=== PATIENT | female | born 1980 | race Caucasian/White ===

== ENCOUNTER 2016-11-22 16:12 | Outpatient (CLI) | payer MEDICAID ==
--- NOTE | 2016-11-22 17:23 | Non Stress Test Report ---
Non Stress Test Datetime Report Generated by CPN: 11/22/2016 17:23 DEMOGRAPHIC EGA NST: 38.2 INDICATION Indication for Study: Ordered by Provider Indication for Study (NST) Other: AMA VITAL SIGNS Temperature - NST: 98.0 Pulse - NST: 76 RESP - NST: 16 NBPSYS NST: 116 NBPDIA NST: 71 MONITORING Monitor Explained: Monitor Explained; Test Explained; Patient Verbalized Understanding Time on Monitor: 11/22/2016 16:38 Time off Monitor: 11/22/2016 17:15 NST Duration: 37 NST INTERVENTIONS NST Interventions: PO Hydration; Reposition Patient Physician Notified NST: Dr. Manning BABY A: [id number] BABY A Movement : Present Contraction Frequency : irreg FHR Baseline : 120 Accelerations : 15X15 Decelerations : None Variability : Moderate 6-25bpm NST Review: Meets Criteria for Reactive NST NST Review and Verified By : Alina Domingo RNC NST Results: Reactive NST REPORT Report Trigger: Send Report
== END 2016-11-22 17:26 | disposition home or self-care (01) ==
LOC: LC 16:12
PROVIDERS: ATTEND Obstetrics & Gynecology
PROC: 4A1HXCZ Monitoring of Products of Conception, Cardiac Rate, External Approach (ICD-10-PCS; principal; 2016-11-22)
DX: O47.1 False labor at or after 37 completed weeks of gestation (principal); O09.523 Supervision of elderly multigravida, third trimester; Z3A.38 38 weeks gestation of pregnancy
CPT/HCPCS: 59025

== ENCOUNTER 2016-12-04 01:10 | Inpatient (IN) | payer MEDICAID ==
[2016-12-04 01:35] LABS: APPEARANCE,URINE CLEAR; BILIRUBIN,URINE NEGATIVE (NEGATIVE); GLUCOSE, URINE NEGATIVE (NEGATIVE); KETONES,URINE NEGATIVE (NEGATIVE); LEUKOCYTE ESTERASE,URINE NEGATIVE (NEGATIVE); NITRITE,URINE NEGATIVE (NEGATIVE); PROTEIN,URINE NEGATIVE (NEGATIVE); URINE SPECIFIC GRAVITY 1.001; UROBILINOGEN,URINE NEGATIVE mg/dL (<2.0)
[2016-12-04] MEDS: RINGERS SOLUTION,LACTATED 1,000 ML IV PRN ×2 (01:43→08:15)
[2016-12-04 01:50] LABS: URINE BARBITURATES SCREEN NEGATIVE; URINE METHADONE SCREEN NEGATIVE; URINE OPIATES LOW NEGATIVE; URINE PHENCYCLIDINE SCREEN NEGATIVE
[2016-12-04 01:51] LABS: ABSOLUTE EOSINOPHILS # (AUTO) 0.1 10^3/uL (0.0-0.6); ABSOLUTE LYMPHOCYTES (AUTO) 1.3 10^3/uL (0.5-4.7); ABSOLUTE MONOCYTES (AUTO) 0.6 10^3/uL (0.1-1.4); ABSOLUTE NEUT (AUTO) 4.6 10^3/uL (1.7-8.2); BASOPHILS % (AUTO) 0.5 % (0-2); EOSINOPHILS % (AUTO) 1.4 % (0-6); HEMATOCRIT 38.4 % (36.0-47.0); HGB HCT DIFFERENCE 0.6; LYMPHOCYTES % (AUTO) 19.9 % (13-45); MEAN CORPUSCULAR HEMOGLOBIN 32.9 pg (27.0-33.4); MEAN CORPUSCULAR HGB CONC 33.8 g/dL (32.0-36.0); MEAN CORPUSCULAR VOLUME 97 fl (80-97); MONOCYTES % (AUTO) 9.2 % (3-13); RED BLOOD COUNT 3.94 10^6/uL (3.72-5.28); RED CELL DISTRIBUTION WIDTH 13.6 % (11.5-14.0); WHITE BLOOD COUNT 6.7 10^3/uL (4.0-10.5)
[2016-12-04] MEDS ORDERED: LIDOCAINE 1% INJ-PF (10 MG/ML) 30 ML SDV ONE (01:53)
[2016-12-04] MEDS ORDERED: MISOPROSTOL 0.2 MG TABLET ONE (01:53)
[2016-12-04] MEDS ORDERED: OXYTOCIN/NORMAL SALINE 20 UNIT/1,000 ML RTUINJ ONE (01:53)
[2016-12-04] MEDS ORDERED: BUPIVACAINE HCL 0.25 % INJ/PF (2.5 MG/1 ML) 30 ML VIAL INFIL ONE (07:33)
[2016-12-04] MEDS ORDERED: EPHEDRINE SULFATE INJ 50 MG/1 ML AMPULE IV PRN (07:33)
[2016-12-04] MEDS ORDERED: BENZOIN/ALOE VERA/STORAX/TOLU TINCTURE 60 ML TP PRN (07:33)
[2016-12-04] MEDS ORDERED: FENTANYL/BUPIVACAINE/NS/PF 100 ML EPI PRN (07:33)
[2016-12-04] MEDS ORDERED: FENTANYL CITRATE INJ/PF 100 MCG/2 ML AMPUL IV PRN (07:34)
[2016-12-04] MEDS ORDERED: MISOPROSTOL 0.2 MG TABLET PR PRN (07:35)
[2016-12-04] MEDS ORDERED: FENTANYL CITRATE INJ/PF 100 MCG/2 ML AMPUL ONE (07:47)
[2016-12-04] MEDS ORDERED: PHENYLEPHRINE HCL INJ/PF 10 MG/1 ML SDV ONE (07:48)
[2016-12-04] MEDS ORDERED: FENTANYL/BUPIVACAINE/NS/PF 200 MCG/100 ML RTUINJ EPI ONE (07:48)
[2016-12-04] MEDS ORDERED: EPHEDRINE SULFATE INJ 50 MG/1 ML AMPULE ONE ×2 (07:48→07:51)
[2016-12-04] MEDS ORDERED: BUPIVACAINE HCL 0.25 % INJ/PF (2.5 MG/1 ML) 30 ML VIAL ONE (07:48)
--- NOTE | 2016-12-04 08:01 | L&D Flow Sheet ---
LD Flowsheet Datetime Report Generated by CPN: 12/04/2016 08:00 Datetime: 12/04/2016 07:39 NBP Sys/Sherry/Mean (mmHg): 112 (QS system process) : 60 (QS system process) : 80 (QS system process) Pulse: 66 (QS system process) Respirations: 16 (Sherry Terrance, RN) LaborFlag: Antepartum (QS system process) Datetime: 12/04/2016 07:30 Uterine Activity Monitor Mode: External; Palpation (Sherry Terrance, RN) Frequency (min): 2-4 (Sherry Terrance, RN) Quality: Mild (Sherry Terrance, RN) Duration (sec): 60-70 (Sherry Terrance, RN) Resting Tone (Palpate): Relaxed (Sherry Terrance, RN) Assessment A Monitor Mode: External US (Sherry Terrance, RN) FHR Baseline Rate : 145 (Sherry Terrance, RN) Variability: Moderate 6-25 bpm (Sherry Terrance, RN) Accelerations: 10X10 (Sherry Terrance, RN) Decelerations: None (Sherry Terrance, RN) Medications Pitocin (milliunit): Pitocin Remains (milliunits) @ 6 (Sherry Terrance, RN) Datetime: 12/04/2016 07:26 NBP Sys/Sherry/Mean (mmHg): 120 (QS system process) : 63 (QS system process) : 84 (QS system process) Pulse: 67 (QS system process) Respirations: 16 (Sherry Terrance, RN) LaborFlag: Antepartum (QS system process) Datetime: 12/04/2016 07:20 Medications Pitocin (milliunit): Pitocin Increased to (milliunits) @ 6 (Sherry Terrance, RN) Datetime: 12/04/2016 07:19 I/O Interventions: Up to BR (Sherry Terrance, RN) Datetime: 12/04/2016 07:15 Uterine Activity Monitor Mode: External; Palpation (Sherry Terrance, RN) Frequency (min): 3-4 (Sherry Carlos RN) Quality: Mild (Sherry Carlos RN) Duration (sec): 60-70 (Sherry Carlos RN) Resting Tone (Palpate): Relaxed (Sherry Carlos RN) Assessment A Monitor Mode: External US (Sherry Carlos RN) FHR Baseline Rate : 140 (Sherry Carlos RN) Variability: Moderate 6-25 bpm (Sherry Carlos RN) Accelerations: 15X15 (Sherry Carlos RN) Decelerations: None (Sherry Carlos RN) Pain Pain Scale: 3 (Sherry Carlos RN) Pain Presence: Intermittent (Sherry Carlos RN) Pain Type: Contraction (Sherry Carlos RN) Pain Location: Abdomen; Perineum (Sherry Carlos RN) Pain Goal: 2 (Sherry Carlos RN) Pain Relief Measures: Comfort Measures (Sherry Carlos RN) Pain Coping: Talking Through Contractions; Breathing Through Contractions; Requesting Pain Medication or Epidural (Sherry Carlos RN) Pain Assessment Comments: Epidural requested (Sherry Villafuerteie, RN) Medications Pitocin (milliunit): Pitocin Remains (milliunits) @ 4 (Sherry Carlos, RN) Patient Care IV/Blood Work: IV Bolus Started (Sherry Carlos, RN) Comfort Measures: Breathing/Relaxation (Sherry Carlos, RN) Patient Care Comments: LR IVF bolus started for Epidural (Sherry Carlos, RN) Procedure TIME OUT Procedure Type: Epidural (Sherry Carlos, RN) Procedure Verify: Correct Patient Identity; Correct Side and Site are Marked; Accurate Procedure Consent Form; Agreement on Procedure to be Done; Relevant Images and Results are Properly Labeled and Displayed; Addressed Need to Administer Antibiotics or Fluids for Irrigation; Safety Precautions Based on Patient History or Medication Use (Sherry Carlos RN) Anesthesia Anesthesia Plans: Epidural (Sherry Carlos RN) LaborFlag: Antepartum (QS system process) Datetime: 12/04/2016 07:10 NBP Sys/Sherry/Mean (mmHg): 128 (QS system process) : 73 (QS system process) : 93 (QS system process) Pulse: 67 (QS system process) Communication Additional Nursing Comments: reporrt to Camryn Villafuerteie RN and care relinquished (Chelsey Gardner RN) LaborFlag: Antepartum (QS system process) Datetime: 12/04/2016 07:00 Uterine Activity Monitor Mode: External; Palpation (Chelsey Gardner RN) Frequency (min): 4 (Chelsey Gardner RN) Quality: Mild/Moderate (Chelsey Gardner RN) Duration (sec): 60-80 (Chelsey Gardner RN) Pattern: Normal: <= 5 Contractions in 10 Minutes (Chelsey Gardner RN) Resting Tone (Palpate): Relaxed (Chelsey Gardner RN) Assessment A Monitor Mode: External US (Chelsey Chalman, RN) FHR Baseline Rate : 135 (Chelsey Chalman, RN) FHR Baseline Changes: No Baseline Change (Chelsey Chalman, RN) Variability: Moderate 6-25 bpm (Chelsey Chalman, RN) Accelerations: 15X15 (Chelsey Chalman, RN) Decelerations: None (Chelsey Chalman, RN) Datetime: 12/04/2016 06:55 NBP Sys/Sherry/Mean (mmHg): 119 (QS system process) : 70 (QS system process) : 88 (QS system process) Pulse: 82 (QS system process) LaborFlag: Antepartum (QS system process) Datetime: 12/04/2016 06:54 NBP Sys/Sherry/Mean (mmHg): 114 (QS system process) : 68 (QS system process) : 85 (QS system process) Pulse: 72 (QS system process) LaborFlag: Antepartum (QS system process) Datetime: 12/04/2016 06:50 Medications Pitocin (milliunit): Pitocin Increased to (milliunits) @ (Annotations: 4) (Chelsey Gardner, RN) Datetime: 12/04/2016 06:45 Uterine Activity Monitor Mode: External; Palpation (Chelsey Chalman, RN) Frequency (min): 2-6 (Chelsey Chalman, RN) Quality: Mild/Moderate (Chelsey Chalman, RN) Duration (sec): 60-90 (Chelsey Chalman, RN) Pattern: Normal: <= 5 Contractions in 10 Minutes (Chelsey Chalman, RN) Resting Tone (Palpate): Relaxed (Chelsey Chalman, RN) Assessment A Monitor Mode: External US (Chelsey Chalman, RN) FHR Baseline Rate : 135 (Chelsey Chalman, RN) FHR Baseline Changes: No Baseline Change (Chelsey Chalman, RN) Variability: Moderate 6-25 bpm (Chelsey Chalman, RN) Accelerations: 15X15 (Chelsey Chalman, RN) Decelerations: None (Chelsey Chalman, RN) Datetime: 12/04/2016 06:39 NBP Sys/Sherry/Mean (mmHg): 112 (QS system process) : 64 (QS system process) : 82 (QS system process) Pulse: 79 (QS system process) LaborFlag: Antepartum (QS system process) Datetime: 12/04/2016 06:30 Uterine Activity Monitor Mode: External; Palpation (Chelsey Gardner RN) Frequency (min): 2-5 (Chelsey Gardner RN) Quality: Mild/Moderate (Chelsey Gardner RN) Duration (sec): 50-90 (Chelsey Gardner RN) Pattern: Normal: <= 5 Contractions in 10 Minutes (Chelsey Chalman, RN) Resting Tone (Palpate): Relaxed (Chelsey Chalman, RN) Assessment A Monitor Mode: External US (Chelsey Chalman, RN) FHR Baseline Rate : 135 (Chelsey Chalman, RN) Variability: Minimal - Undetectable to <=5 bpm (Chelsey Chalman, RN) Accelerations: 15X15 (Chelsey Chalman, RN) Decelerations: None (Chelsey Chalman, RN) Datetime: 12/04/2016 06:24 NBP Sys/Sherry/Mean (mmHg): 116 (QS system process) : 65 (QS system process) : 84 (QS system process) Pulse: 74 (QS system process) Temperature (F): 98.2 (Chelsey Chalman, RN) Temperature (C): 36.8 (QS system process) Temperature Route: Oral (Chelsey Chalman, RN) LaborFlag: Antepartum (QS system process) Datetime: 12/04/2016 06:20 Medications Pitocin (milliunit): Pitocin Started (milliunits) @ (Annotations: 2) (Chelsey Chalman, RN) Datetime: 12/04/2016 06:15 Uterine Activity Monitor Mode: External; Palpation (Chelsey Chalman, RN) Frequency (min): x1 (Chelsey Chalman, RN) Quality: Mild/Moderate (Chelsey Chalman, RN) Duration (sec): 80 (Chelsey Chalman, RN) Pattern: Normal: <= 5 Contractions in 10 Minutes (Chelsey Chalman, RN) Resting Tone (Palpate): Relaxed (Chelsey Chalman, RN) Assessment A Monitor Mode: External US (Chelsey Chalman, RN) FHR Baseline Rate : 140 (Chelsey Chalman, RN) FHR Baseline Changes: No Baseline Change (Chelsey Chalman, RN) Variability: Moderate 6-25 bpm (Chelsey Chalman, RN) Accelerations: 10X10 (Chelsey Chalman, RN) Decelerations: None (Chelsey Chalman, RN) Datetime: 12/04/2016 06:02 Patient Care Comments: monitors reconnected. pitocin to be started per Dr. Yu's order (Chelsey Chalman, RN) Datetime: 12/04/2016 04:22 Uterine Activity Monitor Mode: External; Palpation (Chelsey Chalman, RN) Frequency (min): 2-5 (Chelsey Chalman, RN) Quality: Mild/Moderate (Chelsey Jj, RN) Duration (sec): 60-100 (Chelsey Jj, RN) Pattern: Normal: <= 5 Contractions in 10 Minutes (Chelsey Chalman, RN) Resting Tone (Palpate): Relaxed (Chelsey Jj, RN) Assessment A Monitor Mode: External US (Chelsey Chalman, RN) FHR Baseline Rate : 140 (Chelsey Chalman, RN) FHR Baseline Changes: No Baseline Change (Chelsey Chalman, RN) Variability: Moderate 6-25 bpm (Chelsey Chalman, RN) Accelerations: 15X15 (Chelsey Chalman, RN) Decelerations: None (Chelsey Chalman, RN) Datetime: 12/04/2016 04:02 Patient Care Comments: pt returned to room from ambulating for NST (Chelsey Chalman, RN) Datetime: 12/04/2016 03:21 Uterine Activity Monitor Mode: External; Palpation (Chelsey Chalman, RN) Frequency (min): 1-3 (Chelsey Chalman, RN) Quality: Moderate (Chelsey Chalman, RN) Duration (sec): 60-100 (Chelsey Chalman, RN) Pattern: Normal: <= 5 Contractions in 10 Minutes (Chelsey Chalman, RN) Resting Tone (Palpate): Relaxed (Chelsey Chalman, RN) Assessment A Monitor Mode: External US (Chelsey Chalman, RN) FHR Baseline Rate : 140 (Chelsey Chalman, RN) FHR Baseline Changes: No Baseline Change (Chelsey Chalman, RN) Variability: Moderate 6-25 bpm (Chelsey Chalman, RN) Accelerations: 15X15 (Chelsey Chalman, RN) Decelerations: None (Chelsey Chalman, RN) Patient Care Comments: monitors d/c and pt ambulating x45 min (Chelsey Chalman, RN) Datetime: 12/04/2016 03:02 Patient Care Comments: pt returned to room from ambulating for NST (Chelsey Gardner RN) Datetime: 12/04/2016 02:13 Uterine Activity Monitor Mode: External; Palpation (Chelsey Gardner RN) Frequency (min): 2-5.5 (Chelsey Gardner RN) Quality: Moderate (Chelsey Gardner RN) Duration (sec): 60-180 (Chelsey Gardner RN) Pattern: Normal: <= 5 Contractions in 10 Minutes (Chelsey Gardner RN) Resting Tone (Palpate): Relaxed (Chelsey Gardner RN) Assessment A Monitor Mode: External US (Chelsey Gardner RN) FHR Baseline Rate : 140 (Chelsey Gardner RN) FHR Baseline Changes: No Baseline Change (Chelsey Gardner RN) Variability: Moderate 6-25 bpm (Chelsey Gardner RN) Accelerations: 15X15 (Chelsey Gardner RN) Decelerations: None (Chelsey Gardner RN) Patient Care Comments: monitors d/c. panties and pads given to pt. pt to ambulate for 45 min then return to room for NST (Chelsey Gardner RN) Datetime: 12/04/2016 02:06 NBP Sys/Sherry/Mean (mmHg): 122 (QS system process) : 64 (QS system process) : 87 (QS system process) Pulse: 76 (QS system process) Communication Additional Nursing Comments: report called to Dr. Yu. Per provider pt can ambulate for 4 hours with NST q 1 hr until labor is adequate. If pt not in active labor after 4 hours pitocin to be started at 2 milliunits/hr and increase by 2 milliunits q 30 min until labor is adequate. pt may have epidural PRN (Chelsey Gardner RN) LaborFlag: Antepartum (QS system process) Datetime: 12/04/2016 02:00 Uterine Activity Monitor Mode: External; Palpation (Chelsey Gardner RN) Frequency (min): 2-5 (Chelsey Chalman, RN) Quality: Moderate (Chelsey Chalman, RN) Duration (sec): 50-180 (Chelsey Chalman, RN) Pattern: Normal: <= 5 Contractions in 10 Minutes (Chelsey Chalman, RN) Resting Tone (Palpate): Relaxed (Chelsey Chalman, RN) Assessment A Monitor Mode: External US (Chelsey Chalman, RN) FHR Baseline Rate : 140 (Chelsey Chalman, RN) FHR Baseline Changes: No Baseline Change (Chelsey Chalman, RN) Variability: Moderate 6-25 bpm (Chelsey Chalman, RN) Accelerations: 15X15 (Chelsey Chalman, RN) Decelerations: None (Chelsey Chalman, RN) Datetime: 12/04/2016 01:45 Procedures: Consents Signed (Tri Karri, RN) Datetime: 12/04/2016 01:44 Pain Pain Scale: 1 (Chelsey Gardner RN) Pain Presence: Intermittent (Chelsey Gardner RN) Pain Type: Contraction (Chelsey Gardner RN) Pain Location: Abdomen (Chelsey Gardner RN) Pain Relief Measures: TRANSPORTATION ASSISTANT Use (Chelsey Gardner RN) Pain Coping: Talking Through Contractions (Chelsey Gardner RN) Membrane Status: Ruptured (Chelsey Gardner RN) Membranes Ruptured Date/Time: 12/04/2016 00:30 (Cehlsey Gardner RN) Membranes Rupture Method: Spontaneous (Chelsey Gardner RN) Amniotic Fluid Color: Clear (Chelsey Gardner RN) Amniotic Fluid Amount: Small (Chelsey Gardner RN) Amniotic Fluid Odor: Normal (Chelsey Gardner RN) Vaginal Bleeding: None (Chelsey Gardner RN) Pool: Positive (Chelsey Gardner RN) Maternal Assessment Level of Consciousness: Fully Conscious (Chelsey Chalman, RN) DTR's/Clonus: DTRs 1+ (Chelsey Chalman, RN) Headache: Denies (Chelsey Chalman, RN) Breath Sounds, Left: Clear and Equal (Chelsey Chalman, RN) Breath Sounds, Right: Clear and Equal (Chelsey Chalman, RN) Nausea/Vomiting: Denies (Chelsey Chalman, RN) RUQ Epigastric Pain: Present (Chelsey Chalman, RN) LaborFlag: Antepartum (QS system process) Datetime: 12/04/2016 01:41 NBP Sys/Sherry/Mean (mmHg): 114 (QS system process) : 63 (QS system process) : 83 (QS system process) Pulse: 83 (QS system process) LaborFlag: Antepartum (QS system process) Datetime: 12/04/2016 01:40 Patient Care IV/Blood Work: IV Started; IV Bolus Started; Labs Drawn with IV Start (Tri Karri, RN) Datetime: 12/04/2016 01:31 Vaginal Exam Dilatation (cm): 2.0 (Chelsey Gardner RN) Effacement (%): 60 (Chelsey Gardner RN) Station: -3 (Chelsey Gardner RN) Exam by: Camryn Gardner RN (Chelsey Gardner RN) Vaginal Bleeding: None (Chelsey Gardner RN) Cervix, Consistency: Soft (Chelsey Gardner RN) Cervix, Position: Midposition (Chelsey Gardner RN) Membrane Comments: obvious gross rupture of membranes observed before SVE (Chelsey Gardner RN) Datetime: 12/04/2016 01:28 Patient Care Comments: pt ambulating from bathroom to bed. amniotic fluid leaking on floor as pt walking. (Chelsey Gardner RN) Datetime: 12/04/2016 01:00 Vital Signs Stage of : Antepartum (Chelsey Gardner RN)
--- NOTE | 2016-12-04 10:01 | L&D Flow Sheet ---
LD Flowsheet Datetime Report Generated by CPN: 12/04/2016 10:00 Datetime: 12/04/2016 09:48 Patient Position/Activity: Left Lateral (Sherry Carlos RN) Datetime: 12/04/2016 09:47 NBP Sys/Sherry/Mean (mmHg): 98 (QS system process) : 68 (QS system process) : 77 (QS system process) Pulse: 108 (QS system process) Respirations: 16 (Sherry Carlos RN) LaborFlag: Antepartum (QS system process) Datetime: 12/04/2016 09:45 Monitor Mode: External; Palpation (Sherry Carlos RN) Frequency (min): 2-3 (Sherry Carlos RN) Quality: Mild/Moderate (Sherry Carlos, RN) Duration (sec): 60-70 (Sherry Carlos, RN) Resting Tone (Palpate): Relaxed (Sherry Carlos, RN) Monitor Mode: External US (Sherry Carlos RN) FHR Baseline Rate : 140 (Sherry Carlos, RN) Variability: Moderate 6-25 bpm (Sherrykendra Carlos, RN) Accelerations: 15X15 (Sherrykendra Carlos, RN) Decelerations: None (Sherry Carlos, RN) Pitocin (milliunit): Pitocin Remains (milliunits) @ 12 (Sherry Carlos, RN) Datetime: 12/04/2016 09:31 NBP Sys/Sherry/Mean (mmHg): 109 (QS system process) : 56 (QS system process) : 76 (QS system process) Pulse: 75 (QS system process) Respirations: 18 (Sherry Terrance, RN) LaborFlag: Antepartum (QS system process) Datetime: 12/04/2016 09:30 Monitor Mode: External; Palpation (Sherry Carlos RN) Frequency (min): 2-3 (Sherry Carlos RN) Quality: Mild/Moderate (Sherry Carlos RN) Duration (sec): 60-70 (hSerry Carlos, RN) Resting Tone (Palpate): Relaxed (Sherry Carlos RN) Monitor Mode: External US (Sehrry Carlos RN) FHR Baseline Rate : 135 (Sherry Carlos, RN) Variability: Moderate 6-25 bpm (Sherry Terrance, RN) Accelerations: 15X15 (Sherry Terrance, RN) Decelerations: None (Sherry Carlos, RN) Pitocin (milliunit): Pitocin Increased to (milliunits) @ 12 (Sherrykendra Carlos, RN) Datetime: 12/04/2016 09:17 NBP Sys/Sherry/Mean (mmHg): 117 (QS system process) : 58 (QS system process) : 80 (QS system process) Pulse: 62 (QS system process) Respirations: 14 (Sherry Carlos RN) LaborFlag: Antepartum (QS system process) Datetime: 12/04/2016 09:16 Communication Comments: Dr Wellington on phone, plan of care discussed, FHR, UC pattern, SVE, epidural. No new orders received. Will continue to monitor. (Sherry Carlos RN) Datetime: 12/04/2016 09:15 Monitor Mode: External; Palpation (Sherry Carlos RN) Frequency (min): 2-4 (Sherry Carlos RN) Quality: Mild/Moderate (Sherry Carlos RN) Duration (sec): 60-70 (Sherry Carlos RN) Resting Tone (Palpate): Relaxed (Sherry Carlos RN) Monitor Mode: External US (Sherry Carlos RN) FHR Baseline Rate : 140 (Sherry Carlos RN) Variability: Moderate 6-25 bpm (Sherry Carlos RN) Accelerations: 15X15 (Sherry Carlos RN) Decelerations: Variable (Sherry Carlos RN) Pitocin (milliunit): Pitocin Remains (milliunits) @ 10 (Sherry Carlos RN) Datetime: 12/04/2016 09:02 NBP Sys/Sherry/Mean (mmHg): 118 (QS system process) : 57 (QS system process) : 80 (QS system process) Pulse: 74 (QS system process) Respirations: 16 (Sherry Carlos RN) LaborFlag: Antepartum (QS system process) Datetime: 12/04/2016 09:00 Pitocin (milliunit): Pitocin Increased to (milliunits) @ 10 (Sherry Carlos RN) Instructional Method: Verbal; Patient Instructed; Verbalized Understanding (Sherry Carlos RN) Plan of Care: Plan of Care Discussed; Vaginal Delivery; Labor (Sherry Carlos RN) Labor/Induction: Labor Stages; Augmentation (Sherry Carlos RN) Pain Management: Comfort Measures (Sherry Carlos RN) Medications: Pitocin (Sherry Carlos RN) PTL/PROM: Hydration; Signs/Symptoms of Infection; Expected Outcomes (Sherry Carlos RN) Teaching Comments: PROM (Sherry Carlos RN) Datetime: 12/04/2016 08:58 NBP Sys/Sherry/Mean (mmHg): 116 (QS system process) : 56 (QS system process) : 80 (QS system process) Pulse: 70 (QS system process) Respirations: 18 (Sherry Carlos RN) LaborFlag: Antepartum (QS system process) Datetime: 12/04/2016 08:56 Pain Scale: 0 (Sherry Carlos RN) Pain Presence: None/Denies (Sherry Carlos RN) Pain Type: N/A (Sherry Carlos RN) Pain Assessment Comments: Comfortable with contractions (Sherry Carlos RN) Dilatation (cm): 3.0 (Sherry Carlos RN) Effacement (%): 60 (Sherry Carlos RN) Station: -3 (Sherry Carlos RN) Exam by: Camryn Carlos RNC (Sherry Carlos RN) Vaginal Bleeding: None (Sherry Carlos RN) Cervix, Consistency: Soft (Sherry Carlos RN) Cervix, Position: Anterior (Sherry Carlos RN) I/O Interventions: Waters Cath Inserted (Sherry Carlos RN) Patient Care Comments: 14fr waters cath insterted under sterile technique w/ clear yellow urine returned. Secured to left leg, set to gravity drainage. (Sherry Carlos RN) Anesthesia Level Check: T10- Umbilicus (Sherry Carlos RN) LaborFlag: Antepartum (QS system process) Datetime: 12/04/2016 08:52 NBP Sys/Sherry/Mean (mmHg): 127 (QS system process) : 58 (QS system process) : 84 (QS system process) Pulse: 71 (QS system process) Respirations: 18 (Sherry Carlos RN) LaborFlag: Antepartum (QS system process) Datetime: 12/04/2016 08:46 NBP Sys/Sherry/Mean (mmHg): 123 (QS system process) : 63 (QS system process) : 86 (QS system process) Pulse: 65 (QS system process) Respirations: 16 (Sherry Carlos RN) LaborFlag: Antepartum (QS system process) Datetime: 12/04/2016 08:41 NBP Sys/Sherry/Mean (mmHg): 114 (QS system process) : 56 (QS system process) : 77 (QS system process) Pulse: 61 (QS system process) Respirations: 18 (Sherry Carlos, NINFA) LaborFlag: Antepartum (QS system process) Datetime: 12/04/2016 08:40 NBP Sys/Sherry/Mean (mmHg): 116 (QS system process) : 58 (QS system process) : 79 (QS system process) Pulse: 64 (QS system process) Respirations: 18 (Sherry Carlos RN) Temperature (F): 98.0 (Sherry Carlos RN) Temperature (C): 36.7 (QS system process) Temperature Route: Oral (Sherry Carlos, RN) LaborFlag: Antepartum (QS system process) Datetime: 12/04/2016 08:39 NBP Sys/Sherry/Mean (mmHg): 116 (QS system process) : 61 (QS system process) : 82 (QS system process) Pulse: 65 (QS system process) Respirations: 16 (Sherry Carlos, RN) LaborFlag: Antepartum (QS system process) Datetime: 12/04/2016 08:37 NBP Sys/Sherry/Mean (mmHg): 111 (QS system process) : 71 (QS system process) : 83 (QS system process) Pulse: 56 (QS system process) Respirations: 18 (Sherry Terrance, RN) LaborFlag: Antepartum (QS system process) Datetime: 12/04/2016 08:36 NBP Sys/Sherry/Mean (mmHg): 116 (QS system process) : 62 (QS system process) : 83 (QS system process) Pulse: 58 (QS system process) LaborFlag: Antepartum (QS system process) Datetime: 12/04/2016 08:35 NBP Sys/Sherry/Mean (mmHg): 118 (QS system process) NBP Sys/Sherry/Mean (mmHg): 111 (QS system process) : 64 (QS system process) : 55 (QS system process) : 85 (QS system process) : 77 (QS system process) Pulse: 50 (QS system process) Pulse: 57 (QS system process) Pulse: 62 (QS system process) SpO2 (%): 99 (QS system process) Medication Comments: Ephedrine 5mg IV (Sherry Carlos RN) LaborFlag: Antepartum (QS system process) Datetime: 12/04/2016 08:33 NBP Sys/Sherry/Mean (mmHg): 86 (QS system process) : 43 (QS system process) : 61 (QS system process) Pulse: 102 (QS system process) Respirations: 18 (Sherry Carlos RN) LaborFlag: Antepartum (QS system process) Datetime: 12/04/2016 08:32 NBP Sys/Sherry/Mean (mmHg): 104 (QS system process) : 60 (QS system process) : 77 (QS system process) Pulse: 88 (QS system process) LaborFlag: Antepartum (QS system process) Datetime: 12/04/2016 08:30 Pulse: 85 (QS system process) Pulse: 84 (QS system process) SpO2 (%): 90 (QS system process) Monitor Mode: External; Palpation (Sherry Carlos RN) Frequency (min): 2-4 (Sherry Carlos RN) Quality: Mild/Moderate (Sherry Carlos RN) Duration (sec): 50-80 (Sherry Carlos RN) Resting Tone (Palpate): Relaxed (Sherry Carlos RN) Monitor Mode: External US (Sherry Carlos RN) FHR Baseline Rate : 135 (Sherry Carlos RN) Variability: Moderate 6-25 bpm (Sherry Carlos RN) Accelerations: 15X15 (Sherry Carlos RN) Decelerations: None (Sherry Carlos RN) Pitocin (milliunit): Pitocin Remains (milliunits) @ 8 (Sherry Carlos RN) Patient Position/Activity: Right Tilt; Supine (Sherry Carlos RN) LaborFlag: Antepartum (QS system process) Datetime: 12/04/2016 08:28 NBP Sys/Sherry/Mean (mmHg): 128 (QS system process) : 74 (QS system process) : 95 (QS system process) Pulse: 66 (QS system process) LaborFlag: Antepartum (QS system process) Datetime: 12/04/2016 08:27 Epidural Procedure: Loading Dose (Sherry Carlos RN) Datetime: 12/04/2016 08:25 NBP Sys/Sherry/Mean (mmHg): 142 (QS system process) : 77 (QS system process) : 102 (QS system process) Pulse: 75 (QS system process) Pulse: 78 (QS system process) SpO2 (%): 100 (QS system process) Epidural Procedure: Cath Placed; Test Dose (Sherry Carlos RN) LaborFlag: Antepartum (QS system process) Datetime: 12/04/2016 08:20 Pulse: 79 (QS system process) SpO2 (%): 100 (QS system process) LaborFlag: Antepartum (QS system process) Datetime: 12/04/2016 08:19 Procedure Type: Epidural (Sherry Carlos RN) Procedure Verify: Correct Patient Identity; Correct Side and Site are Marked; Accurate Procedure Consent Form; Agreement on Procedure to be Done; Correct Patient Position; Relevant Images and Results are Properly Labeled and Displayed; Addressed Need to Administer Antibiotics or Fluids for Irrigation; Safety Precautions Based on Patient History or Medication Use (Sherry Carlos RN) Anesthesia Plans: Epidural (Sherry Carlos RN) Epidural Positioning: Sitting (Sherry Carlos RN) Anesthesia Comments: Dr East at bedside (Sherry Carlos RN) Datetime: 12/04/2016 08:15 Pulse: 76 (QS system process) SpO2 (%): 100 (QS system process) Monitor Mode: External; Palpation (Sherry Carlos RN) Frequency (min): 2-3 (Sherry Carlos RN) Quality: Mild (Sherry Carlos RN) Duration (sec): 50-70 (Sherry Carlos RN) Resting Tone (Palpate): Relaxed (Sherry Carlos RN) Monitor Mode: External US (Sherry Carlos RN) FHR Baseline Rate : 140 (Sherry Carlos RN) Variability: Moderate 6-25 bpm (Sherry Carlos RN) Accelerations: 15X15 (Sherry Carlos RN) Decelerations: None (Sherry Carlos RN) Pitocin (milliunit): Pitocin Remains (milliunits) @ 8 (Sherry Carlos RN) LaborFlag: Antepartum (QS system process) Datetime: 12/04/2016 08:12 Anesthesia Plans: Epidural (Sherry Carlos RN) Epidural Positioning: Sitting (Sherry Carlos RN) Datetime: 12/04/2016 08:11 NBP Sys/Sherry/Mean (mmHg): 123 (QS system process) : 72 (QS system process) : 92 (QS system process) Pulse: 66 (QS system process) LaborFlag: Antepartum (QS system process) Datetime: 12/04/2016 08:05 Procedure Type: Epidural (Sherry Carlos RN) Procedure Verify: Correct Patient Identity; Correct Side and Site are Marked; Accurate Procedure Consent Form; Agreement on Procedure to be Done; Relevant Images and Results are Properly Labeled and Displayed; Addressed Need to Administer Antibiotics or Fluids for Irrigation; Safety Precautions Based on Patient History or Medication Use (Sherry Carlos RN) Anesthesia Plans: Epidural (Sherry Carlos RN) Anesthesia Comments: Dr East notified of epidural request (Sherry Carlos RN) Datetime: 12/04/2016 08:00 Monitor Mode: External; Palpation (Sherry Carlos RN) Frequency (min): 2-4 (Sherry Carlos RN) Quality: Mild (Sherry Carlos RN) Duration (sec): 60-80 (Sherry Carlos RN) Resting Tone (Palpate): Relaxed (Sherry Carlos RN) Monitor Mode: External US (Sherry Carlos RN) FHR Baseline Rate : 140 (Sherry Carlos RN) Variability: Moderate 6-25 bpm (Sherry Carlos RN) Accelerations: 15X15 (Sherry Carlos RN) Decelerations: None (Sherry Carlos RN) Pitocin (milliunit): Pitocin Remains (milliunits) @ 8 (Sherry Carlos RN)
[2016-12-04] MEDS ORDERED: DIPH/PERTUSS(ACELL)/TETANUS VAC/PF 0.5 ML SYR (>=10YO) IM PRN (11:41)
[2016-12-04] MEDS ORDERED: OXYTOCIN/NORMAL SALINE 1,000 ML IV PRN (11:41)
[2016-12-04] MEDS ORDERED: BENZOCAINE/MENTHOL AEROSOL SPRAY 56 ML TOP PRN (11:41)
[2016-12-04] MEDS ORDERED: MEASLES,MUMPS&RUBELLA VACC/PF 0.5 ML VIAL SUBCUT PRN (11:41)
[2016-12-04] MEDS ORDERED: ZOLPIDEM TARTRATE 5 MG TABLET PO PRN (11:41)
[2016-12-04] MEDS ORDERED: ACETAMINOPHEN WITH CODEINE #3 TABLET PO PRN ×2 (11:41)
[2016-12-04] MEDS ORDERED: DIBUCAINE 1% OINTMENT 28 GM TP PRN (11:41)
--- NOTE | 2016-12-04 12:01 | L&D Flow Sheet ---
LD Flowsheet Datetime Report Generated by CPN: 12/04/2016 12:00 Datetime: 12/04/2016 11:47 NBP Sys/Sherry/Mean (mmHg): 122 (QS system process) : 63 (QS system process) : 86 (QS system process) Pulse: 75 (QS system process) Respirations: 14 (Sherry Terrance, RN) Datetime: 12/04/2016 11:32 NBP Sys/Sherry/Mean (mmHg): 121 (QS system process) : 60 (QS system process) : 86 (QS system process) Pulse: 94 (QS system process) Respirations: 16 (Sherry Carlos RN) Pain Scale: 0 (Sherry Carlos RN) Pain Presence: None/Denies (Sherry Carlos RN) Pain Type: N/A (Sherry Carlos RN) Stage 2 Comments: Intact placenta, discarded per H. Elder CNM (Sherry Carlos RN) Datetime: 12/04/2016 11:27 Stage of : Recovery (Sherry Carlos RN) Medication Comments: NS w/ 20units Pitocin IVF bolus started (Sherry Carlos RN) Datetime: 12/04/2016 11:26 Monitor Mode: External; Palpation (Sherry Carlos RN) Frequency (min): 2 (Sherry Carlos RN) Quality: Moderate (Sherry Carlos RN) Duration (sec): 60-80 (Sherry Carlos RN) Resting Tone (Palpate): Relaxed (Sherry Carlos RN) Monitor Mode: External US (Sherry Carlos RN) FHR Baseline Rate : 120 (Sherry Carlos RN) Variability: Moderate 6-25 bpm (Sherry Carlos RN) Accelerations: 15X15 (Sherry Carlos RN) Decelerations: Variable (Sherry Carlos RN) Stage 2 Comments: Viable baby girl, see delivery summary (Sherry Carlos RN) Datetime: 12/04/2016 11:22 Pitocin (milliunit): Pitocin Discontinued (Sherry Carlos RN) Datetime: 12/04/2016 11:17 NBP Sys/Sherry/Mean (mmHg): 142 (QS system process) : 61 (QS system process) : 88 (QS system process) Pulse: 79 (QS system process) Respirations: 18 (Sherry Carlos RN) LaborFlag: Antepartum (QS system process) Datetime: 12/04/2016 11:15 Monitor Mode: External; Palpation (Sherrykendra Carlos, RN) Frequency (min): 2 (Sherrykendra Carlos, RN) Quality: Moderate (Sherry Terrance, RN) Duration (sec): 60-80 (Sherry Terrance, RN) Resting Tone (Palpate): Relaxed (Sherry Terrance, RN) Monitor Mode: External US (Sherrykendra Carlos, RN) FHR Baseline Rate : 135 (Sherry Terrance, RN) Variability: Moderate 6-25 bpm (Sherry Terrance, RN) Accelerations: 15X15 (Sherry Terrance, RN) Decelerations: None (Sherry Terrance, RN) Pitocin (milliunit): Pitocin Remains (milliunits) @ 2 (Sherry Terrance, RN) Datetime: 12/04/2016 11:14 Comments: RN and provider remains at bedside conitinuously assessing FHR while patient pushing (Sherry Terrance, RN) Datetime: 12/04/2016 11:12 Dilatation (cm): 10.0 (Sherry Carlos, NINFA) Effacement (%): 100 (Sherry Carlos, NINFA) Station: 2 (Sherry Carlos, NINFA) Exam by: Radha Friedman CNM (Sherry Carlos RN) Communication Comments: Radha Friedman CNMayur at bedside (Sherry Carlos RN) Datetime: 12/04/2016 11:11 I/O Interventions: Lieberman Discontinued (Sherry Carlos, ) Datetime: 12/04/2016 11:07 Pitocin (milliunit): Pitocin Decreased to (milliunits) @ 2 (Sherry Carlos RN) Communication Comments: Dr Wellington (Sherry Carlos, NINFA) Datetime: 12/04/2016 11:01 Communication Comments: Dr Wellington on unit, notified of SVE (Sherry Carlos RN) Datetime: 12/04/2016 11:00 Monitor Mode: External; Palpation (Sherry Carlos RN) Frequency (min): 2-3 (Sherry Carlos RN) Quality: Moderate (Sherry Carlos RN) Duration (sec): 60-80 (Sherry Carlos RN) Resting Tone (Palpate): Relaxed (Sherry Carlos RN) Monitor Mode: External US (Sherry Carlos RN) FHR Baseline Rate : 135 (Sherry Carlos RN) Variability: Moderate 6-25 bpm (Sherry Carlos RN) Accelerations: 15X15 (Sherry Carlos RN) Decelerations: None (Sherry Carlos RN) Pitocin (milliunit): Pitocin Remains (milliunits) @ 14 (Sherry Carlos RN) IV/Blood Work: IV Infusing per Order; New IV Bag Hung; IV Bag Number @ 3 (Sherry Carlos RN) Datetime: 12/04/2016 10:57 Patient Position/Activity: Right Lateral; Peanut Ball (Sherry Carlos, NINFA) Datetime: 12/04/2016 10:54 Dilatation (cm): 8.0 (Sherry Carlos RN) Effacement (%): 100 (Sherry Carlos RN) Station: 1 (Sherry Carlos RN) Exam by: Camryn Carlos RNC (Sherry Carlos RN) Vaginal Bleeding: Normal Show (Sherry Carlos RN) Cervix, Consistency: Soft (Sherry Carlos RN) Cervix, Position: Anterior (Sherry Carlos RN) Datetime: 12/04/2016 10:47 NBP Sys/Sherry/Mean (mmHg): 103 (QS system process) : 56 (QS system process) : 73 (QS system process) Pulse: 66 (QS system process) LaborFlag: Antepartum (QS system process) Datetime: 12/04/2016 10:45 Monitor Mode: External; Palpation (Sherry Carlos, RN) Frequency (min): 2-3 (Sherry Carlos RN) Quality: Moderate (Sherry Carlos, RN) Duration (sec): 60-80 (Sherry Carlos, RN) Resting Tone (Palpate): Relaxed (Sherry Carlos, RN) Monitor Mode: External US (Sherry Carlos, RN) FHR Baseline Rate : 135 (Sherrykendra Carlos, RN) Variability: Moderate 6-25 bpm (Sherry Terrance, RN) Accelerations: 15X15 (Sherry Terrance, RN) Decelerations: None (Sherry Carlos, RN) Pitocin (milliunit): Pitocin Remains (milliunits) @ 14 (Sherrykendra Carlos, RN) Datetime: 12/04/2016 10:32 NBP Sys/Sherry/Mean (mmHg): 94 (QS system process) : 56 (QS system process) : 63 (QS system process) Pulse: 71 (QS system process) Respirations: 16 (Sherry Carlos RN) Temperature (F): 98.0 (Sherry Carlos RN) Temperature (C): 36.7 (QS system process) Temperature Route: Oral (Sherry Carlos RN) LaborFlag: Antepartum (QS system process) Datetime: 12/04/2016 10:30 Monitor Mode: External; Palpation (Sherry Carlos RN) Frequency (min): 2-3 (Sherry Carlos RN) Quality: Mild/Moderate (Sherry Carlos RN) Duration (sec): 60-80 (Sherry Carlos RN) Resting Tone (Palpate): Relaxed (Sherry Carlos RN) Monitor Mode: External US (Sherry Carlos RN) FHR Baseline Rate : 135 (Sherry Carlos RN) Variability: Moderate 6-25 bpm (Sherry Carlos RN) Accelerations: 15X15 (Sherry Carlos, RN) Decelerations: None (Sherry Carlos, RN) Pitocin (milliunit): Pitocin Remains (milliunits) @ 14 (Sherry Carlos RN) Datetime: 12/04/2016 10:22 Patient Position/Activity: Left Lateral; Peanut Ball (Sherry Carlos, RN) Datetime: 12/04/2016 10:20 Pitocin (milliunit): Pitocin Increased to (milliunits) @ 14 (Sherry Carlos, RN) Datetime: 12/04/2016 10:17 NBP Sys/Sherry/Mean (mmHg): 108 (QS system process) : 66 (QS system process) : 80 (QS system process) Pulse: 80 (QS system process) Respirations: 14 (Sherry Carlos, RN) LaborFlag: Antepartum (QS system process) Datetime: 12/04/2016 10:15 Monitor Mode: External; Palpation (Sherry Carlos, RN) Frequency (min): 2-3 (Sherry Carlos, RN) Quality: Mild/Moderate (Sherry Terrance, RN) Duration (sec): 60-70 (Sherrykendra Carlos, RN) Resting Tone (Palpate): Relaxed (Sherry Carlos, RN) Monitor Mode: External US (Sherry Carlos, RN) FHR Baseline Rate : 140 (Sherry Terrance, RN) Variability: Moderate 6-25 bpm (Sherry Terrance, RN) Accelerations: 10X10 (Sherry Terrance, RN) Decelerations: Early (Sherrykendra Carlos, RN) Pitocin (milliunit): Pitocin Remains (milliunits) @ 12 (Sherrykendra Carlos, RN) Datetime: 12/04/2016 10:02 NBP Sys/Sherry/Mean (mmHg): 106 (QS system process) : 61 (QS system process) : 77 (QS system process) Pulse: 90 (QS system process) Respirations: 16 (Sherry Terrance, RN) LaborFlag: Antepartum (QS system process) Datetime: 12/04/2016 10:00 Monitor Mode: External; Palpation (Sherry Carlos RN) Frequency (min): 2-3 (Sherry Carlos RN) Quality: Mild/Moderate (Sherry Carlos RN) Duration (sec): 60-70 (Sherry Carlos RN) Resting Tone (Palpate): Relaxed (Sherry Carlos RN) Monitor Mode: External US (Sherry Carlos RN) FHR Baseline Rate : 145 (Sherry Carlos RN) Variability: Moderate 6-25 bpm (Sherry Carlos RN) Accelerations: 15X15 (Sherry Carlos RN) Decelerations: Early (Sherry Carlos RN) Pitocin (milliunit): Pitocin Remains (milliunits) @ 12 (Sherry Carlos RN)
--- NOTE | 2016-12-04 13:29 | Delivery Summary ---
Del Sum A-C Datetime Report Generated by CPN: 12/04/2016 13:29 ADMISSION DATA Chief Complaint: Suspected Ruptured Membranes Indication for Induction: Other Admission Impression: Term, Intrauterine Admit Provider Comments: efw is 7-8 lbs DELIVERY PERSONNEL Delivery Doctor:: Janel Friedman CNM Labor and Delivery Nurse:: Sherry Carlos RNhomicide squad sergeant Nurse:: Phyllis Gonzalez RN Manager Safe/PRETTY: Shan Lemons CST Additional Personnel: : Alexandra Yu, PA student MATERNAL INFORMATION Delivery Anesthesia: Epidural Medications After Delivery: Pitocin Drip 20 Units/1000ml NSS Estimated Blood Loss (ml): 250 Maternal Complications: None Provider Comments: of viable female infant over intact perineum, head, shoulders, and body delivered without difficulty. with spontaneous cry and respirations to maternal abdomen, cord clamped X2, infant cut free after 2 min delay. Spontaneous delivery of placenta via odonnell mechanism, 3 VC, appears intact, vagina and perineum inspected, no lacerations noted. Hemostasis acheived with external fundal massage and IV pitocin. Mother and baby in stable condition, routine pp care. LABOR SUMMARY EDC: 12/04/2016 00:00 No. Babies in Womb: 1 Attempted: No Labor Anesthesia: Epidural LABOR INFORMATION Reason for Induction: Premature Rupture of Membranes Onset of Labor: 12/04/2016 07:10 Complete Dilatation: 12/04/2016 11:12 Oxytocin: Augmentation Group B Beta Strep: Negative Antibiotics # of Doses: 0 Steroids Given: None Reason Steroids Not Administered: Not Applicable MEMBRANES Membranes Rupture Method: Spontaneous Rupture of Membranes: 12/04/2016 00:30 Length of Rupture (hr): 10.93 Amniotic Fluid Color: Clear Amniotic Fluid Amount: Small Amniotic Fluid Odor: Normal STAGES OF LABOR Stage 1 hr: 4 Stage 1 min: 2 Stage 2 hr: 0 Stage 2 min: 14 Stage 3 hr: 0 Stage 3 min: 6 Total Time in Labor hr: 4 Total Time in Labor min: 22 VAGINAL DELIVERY Episiotomy: None Laceration Extension: N/A Laceration Type: None Laceration Repair: Not Applicable Sponge Count Correct: N/A Sharps Count Correct: Yes CSECTION DELIVERY Primary Indication: N/A Secondary Indication: N/A CSection Urgency: N/A CSection Incidence: N/A Labor: N/A Elective: N/A CSection Incision: N/A BABY A INFORMATION Delivery Date/Time: 12/04/2016 11:26 Method of Delivery: Vaginal Born in Route : No : N/A Forceps: N/A Vacuum Extraction: N/A Shoulder Dystocia : No PRESENTATION/POSITION BABY A Presentation: Cephalic Cephalic Presentation: Vertex Vertex Position: Left Occipital Anterior Breech Presentation: N/A PLACENTA INFORMATION BABY A Placenta Delivery Time : 12/04/2016 11:32 Placenta Method of Delivery: Spontaneous Placenta Status: Delivered SCORES BABY A Heart Rate 1 min: >100 bpm Resp Effort 1 min: Good Cry Reflex Irritability 1 min: Cough or Sneeze or Pulls Away Muscle Tone 1 min: Active Motion Color 1 min: Blue/Pale Resuscitation Effort 1 min: Tactile Stimulation SCORE 1 MIN: 8 Heart Rate 5 min: >100 bpm Resp Effort 5 min: Good Cry Reflex Irritability 5 min: Cough or Sneeze or Pulls Away Muscle Tone 5 min: Active Motion Color 5 min: Body [place], Extremities Blue Resuscitation Effort 5 min: N/A SCORE 5 MIN: 9 INFANT INFORMATION BABY A Gestational Age at Delivery: 40.0 Gestational Status: Full Term- 39- 40.6 Weeks Infant Outcome : Liveborn Condition : Stable Infant Sex: Female IDENTIFICATION BABY A Infant Verification Date/Time: 12/04/2016 11:43 ID Band Number: [id number] Mother's Name Verified: Yes Infant RN Verifying : Rene Gonzalez RN/ R María RN WEIGHT/LENGTH BABY A Infant Birthweight (gm): 3760 Infant Weight (lb): 8 Infant Weight (oz): 5 Length (in): 21.00 Length (cm): 53.34 CORD INFORMATION BABY A No. Cord Vessels: 3 Nuchal Cord : N/A Cord Blood Taken: Yes-For Eval (Mom's Blood Type - or O+) Suction: None ASSESSMENT BABY A Infant Complications: None Physical Findings at Delivery: Within Normal Limits Infant Respirations: Appears Normal Skin to Skin: Yes Skin to Skin Time (min): 65 Agency Appointments Supervisor/ALS Called : No Infant Care By: Rene Gonzalez RN Transferred To: Remains with Mother BABY B INFORMATION : N/A SIGNATURES Assignment: Mamta Wellington MD Signature: with User ID: Zehra : with User ID: [email or web address]
[2016-12-04] MEDS: IBUPROFEN 800 MG TABLET PO SCH ×2 (13:33→21:15)
[2016-12-04] MEDS ORDERED: IBUPROFEN 800 MG TABLET ONE (13:33)
--- NOTE | 2016-12-04 13:55 | Admission Physical ---
Datetime Report Generated by CPN: 12/04/2016 13:54 CURRENT ADMISSION Chief Complaint: Suspected Ruptured Membranes Indication for Induction: Other Admit Plan: Admit to Unit; Initiate Labor Induction Protocol ALLERGIES Medication Allergies: No Medication Allergies: No Known Allergies (12/04/2016) OBSTETRICAL HISTORY EDC: 12/04/2016 00:00 : 7 Para: 6 Gestational Diabetes: No Rh Sensitization: No Incompetent Cervix: No SERJIO: No Infertility: No ART Treatment: No Uterine Anomaly: No IUGR: No Hx Previous C/S: No Macrosomia: No Hx Loss/Stillborn: No PIH: No Hx : No Placenta Previa/Abruption: No Depression/PP Depression: No PTL/PROM: No Post Hemorrhage: No Current Procedures: Ultrasound; NST Obstetrical History Comments: G1: 02/28/2002 babygirl - retained placenta G2: 03/16/2004 babygirl - no complications G3: 03/29/2006 babyboy - no complications G4: 08/21/2008 babyboy - meconium G5: 02/26/2010 babygirl - no complications G6: 08/18/2011 babyboy - no complications G7: current, late and insufficient pnc, advanced maternal age SEE RECORDS Alcohol: No Marijuana : No Cocaine: No Other Illicit Drugs: No Cigarettes: Never Smoker. [id number] MEDICAL HISTORY Diabetes: No Blood Transfusion: No Pulmonary Disease (Asthma, TB): No Breast Disease: No Hypertension: No Search Analyst Surgery: No Heart Disease: No Hosp/Surgery: No Autoimmune Disorder: No Anesthetic Complications: No Kidney Disease: No Abnormal Pap Smear: No Neuro/Epilepsy: No Psychiatric Disorders: No Other Medical Diseases: No Hepatitis/Liver Disease: No Significant Family History: No Varicosities/Phlebitis: No Trauma/Violence : No Thyroid Dysfunction: No INFECTIOUS HISTORY Gonorrhea: No Genital Herpes: No Chlamydia: No Tuberculosis: No Syphilis: No Hepatitis: No HIV/AIDS Exposure: No Rash or Viral Illness: No HPV: No PHYSICAL EXAM General: Normal HEENT: Normal Neurologic: Normal Thyroid: Normal Heart: Normal Lungs: Normal Breast: Deferred Back: Normal Abdomen: Normal Genitourinary Exam: Normal Extremities: Normal DTRs: Normal Pelvic Type: Adequate Vital Signs: Reviewed VAGINAL EXAM Dilatation: 2 Effacement: 60 Station: -3 MEMBRANES Membranes: Ruptured FETUS A EGA: 40.0 Monitoring: External US FHR- Baseline: 140 Variability: Moderate 6-25bpm Accelerations: 15X15 Decelerations: None FHR Category: Category I Admit Comment: efw is 7-8 lbs PLANS FOR LABOR AND DELIVERY Labor and Delivery: None Pain Management: Natural Feeding Preference: Breast Benefit of Breast Feed Discussed: Yes Circumcision: N/A INFORMED CONSENT Signature: with User ID: [email or web address]
[2016-12-04] MEDS: FERROUS SULFATE 325 MG TABLET PO SCH (17:43)
[2016-12-04] MEDS: DOCUSATE SODIUM 100 MG CAPSULE PO SCH (17:43)
--- NOTE | 2016-12-04 19:01 | L&D Flow Sheet ---
LD Flowsheet Datetime Report Generated by CPN: 12/04/2016 19:00 Datetime: 12/04/2016 13:32 NBP Sys/Sherry/Mean (mmHg): 124 (QS system process) : 60 (QS system process) : 86 (QS system process) Pulse: 82 (QS system process) Respirations: 16 (Sherry Terrance, RN) Datetime: 12/04/2016 13:16 NBP Sys/Sherry/Mean (mmHg): 133 (QS system process) : 59 (QS system process) : 85 (QS system process) Pulse: 84 (QS system process) Datetime: 12/04/2016 13:02 NBP Sys/Sherry/Mean (mmHg): 130 (QS system process) : 60 (QS system process) : 86 (QS system process) Pulse: 79 (QS system process) Respirations: 16 (Sherry Terrance, RN) Datetime: 12/04/2016 12:31 NBP Sys/Sherry/Mean (mmHg): 127 (QS system process) : 60 (QS system process) : 87 (QS system process) Pulse: 71 (QS system process) Respirations: 16 (Sherry Terrance, RN) Datetime: 12/04/2016 12:17 NBP Sys/Sherry/Mean (mmHg): 125 (QS system process) : 59 (QS system process) : 85 (QS system process) Pulse: 70 (QS system process) Respirations: 16 (Sherry Carlos, RN) Datetime: 12/04/2016 12:02 NBP Sys/Sherry/Mean (mmHg): 129 (QS system process) : 63 (QS system process) : 87 (QS system process) Pulse: 77 (QS system process) Respirations: 14 (Sherry Carlos, RN) Datetime: 12/04/2016 11:47 NBP Sys/Sherry/Mean (mmHg): 122 (QS system process) : 63 (QS system process) : 86 (QS system process) Pulse: 75 (QS system process) Respirations: 14 (Sherry Carlos, RN) Datetime: 12/04/2016 11:32 NBP Sys/Sherry/Mean (mmHg): 121 (QS system process) : 60 (QS system process) : 86 (QS system process) Pulse: 94 (QS system process) Respirations: 16 (Sherry Carlos RN) Pain Scale: 0 (Sherry Carlos RN) Pain Presence: None/Denies (Sherry Carlos RN) Pain Type: N/A (Sherry Carlos RN) Stage 2 Comments: Intact placenta, discarded per H. Elder CNM (Sherry Carlos RN) Datetime: 12/04/2016 11:27 Stage of : Recovery (Sherry Carlos RN) Medication Comments: NS w/ 20units Pitocin IVF bolus started (Sherry Carlos RN) Datetime: 12/04/2016 11:26 Monitor Mode: External; Palpation (Sherry Terrance, RN) Frequency (min): 2 (Sherry Terrance, RN) Quality: Moderate (Sherry Terrance, RN) Duration (sec): 60-80 (Sherry Terrance, RN) Resting Tone (Palpate): Relaxed (Sherry Terrance, RN) Monitor Mode: External US (Sherry Terrance, RN) FHR Baseline Rate : 120 (Sherry Terrance, RN) Variability: Moderate 6-25 bpm (Sherry Terrance, RN) Accelerations: 15X15 (Sherry Terrance, RN) Decelerations: Variable (Sherry Terrance, RN) Stage 2 Comments: Viable baby girl, see delivery summary (Sherry Terrance, RN) Datetime: 12/04/2016 11:22 Pitocin (milliunit): Pitocin Discontinued (Sherry Terrance, RN) Datetime: 12/04/2016 11:17 NBP Sys/Sherry/Mean (mmHg): 142 (QS system process) : 61 (QS system process) : 88 (QS system process) Pulse: 79 (QS system process) Respirations: 18 (Sherrykendra Carlos, RN) LaborFlag: Antepartum (QS system process) Datetime: 12/04/2016 11:15 Monitor Mode: External; Palpation (Sherry Carlos RN) Frequency (min): 2 (Sherry Carlos, RN) Quality: Moderate (Sherry Terrance, RN) Duration (sec): 60-80 (Sherry Terrance, RN) Resting Tone (Palpate): Relaxed (Sherry Carlos, RN) Monitor Mode: External US (Sherry Carlos, RN) FHR Baseline Rate : 135 (Sherrykendra Carlos, RN) Variability: Moderate 6-25 bpm (Sherry Terrance, RN) Accelerations: 15X15 (Sherry Terrance, RN) Decelerations: None (Sheryrkendra Carlos, RN) Pitocin (milliunit): Pitocin Remains (milliunits) @ 2 (Sherry Terrance, RN) Datetime: 12/04/2016 11:14 Comments: RN and provider remains at bedside conitinuously assessing FHR while patient pushing (Sherry Carlos, NINFA) Datetime: 12/04/2016 11:12 Dilatation (cm): 10.0 (Sherry Carlos RN) Effacement (%): 100 (Sherry Carlos RN) Station: 2 (Sherry Carlos RN) Exam by: H. Elder CNM (Sherry Carlos RN) Communication Comments: H. Elder CNM at bedside (Sherry Carlos RN) Datetime: 12/04/2016 11:11 I/O Interventions: Waters Discontinued (Sherry Carlos, NINFA) Datetime: 12/04/2016 11:07 Pitocin (milliunit): Pitocin Decreased to (milliunits) @ 2 (Sherry Carlos RN) Communication Comments: Dr Wellington (Sherry Carlos RN) Datetime: 12/04/2016 11:01 Communication Comments: Dr Wellington on unit, notified of SVE (Sherry Carlos RN) Datetime: 12/04/2016 11:00 Monitor Mode: External; Palpation (Sherry Carlos RN) Frequency (min): 2-3 (Sherry Carlos RN) Quality: Moderate (Sherry Carlos RN) Duration (sec): 60-80 (Sherry Carlos RN) Resting Tone (Palpate): Relaxed (Sherry Carlos RN) Monitor Mode: External US (Sherry Carlos RN) FHR Baseline Rate : 135 (Sherry Carlos RN) Variability: Moderate 6-25 bpm (Sherry Carlos RN) Accelerations: 15X15 (Sherry Carlos RN) Decelerations: None (Sherry Carlos RN) Pitocin (milliunit): Pitocin Remains (milliunits) @ 14 (Sherry Carlos RN) IV/Blood Work: IV Infusing per Order; New IV Bag Hung; IV Bag Number @ 3 (Sherry Carlos RN) Datetime: 12/04/2016 10:57 Patient Position/Activity: Right Lateral; Peanut Ball (Sherry Carlos RN) Datetime: 12/04/2016 10:54 Dilatation (cm): 8.0 (Sherry Carlos RN) Effacement (%): 100 (Sherry Carlos RN) Station: 1 (Sherry Carlos RN) Exam by: Camryn Carlos RNC (Sherry Carlos RN) Vaginal Bleeding: Normal Show (Sherry Carlos RN) Cervix, Consistency: Soft (Sherry Carlos RN) Cervix, Position: Anterior (Sherry Carlos RN) Datetime: 12/04/2016 10:47 NBP Sys/Sherry/Mean (mmHg): 103 (QS system process) : 56 (QS system process) : 73 (QS system process) Pulse: 66 (QS system process) LaborFlag: Antepartum (QS system process) Datetime: 12/04/2016 10:45 Monitor Mode: External; Palpation (Sherry Carlos RN) Frequency (min): 2-3 (Sherry Carlos RN) Quality: Moderate (Sherry Carlos RN) Duration (sec): 60-80 (Sherry Carlos RN) Resting Tone (Palpate): Relaxed (Sherry Carlos RN) Monitor Mode: External US (Sherry Carlos RN) FHR Baseline Rate : 135 (Sherry Carlos RN) Variability: Moderate 6-25 bpm (Sherry Carlos RN) Accelerations: 15X15 (Sherry Carlos RN) Decelerations: None (Sherry Carlos RN) Pitocin (milliunit): Pitocin Remains (milliunits) @ 14 (Sherry Carlos RN) Datetime: 12/04/2016 10:32 NBP Sys/Sherry/Mean (mmHg): 94 (QS system process) : 56 (QS system process) : 63 (QS system process) Pulse: 71 (QS system process) Respirations: 16 (Sherry Carlos RN) Temperature (F): 98.0 (Sherry Carlos RN) Temperature (C): 36.7 (QS system process) Temperature Route: Oral (Sherry Carlos RN) LaborFlag: Antepartum (QS system process) Datetime: 12/04/2016 10:30 Monitor Mode: External; Palpation (Sherry Carlos RN) Frequency (min): 2-3 (Sherry Carlos RN) Quality: Mild/Moderate (Sherry Carlos RN) Duration (sec): 60-80 (Sherry Carlos RN) Resting Tone (Palpate): Relaxed (Sherry Carlos RN) Monitor Mode: External US (Sherry Carlos RN) FHR Baseline Rate : 135 (Sherry Terrance, RN) Variability: Moderate 6-25 bpm (Sherry Terrance, RN) Accelerations: 15X15 (Sherry Terrance, RN) Decelerations: None (Sherry Terrance, RN) Pitocin (milliunit): Pitocin Remains (milliunits) @ 14 (Sherry Terrance, RN) Datetime: 12/04/2016 10:22 Patient Position/Activity: Left Lateral; Peanut Ball (Sherry Terrance, RN) Datetime: 12/04/2016 10:20 Pitocin (milliunit): Pitocin Increased to (milliunits) @ 14 (Sherry Terrance, RN) Datetime: 12/04/2016 10:17 NBP Sys/Sherry/Mean (mmHg): 108 (QS system process) : 66 (QS system process) : 80 (QS system process) Pulse: 80 (QS system process) Respirations: 14 (Sherry Carlos RN) LaborFlag: Antepartum (QS system process) Datetime: 12/04/2016 10:15 Monitor Mode: External; Palpation (Sherry Carlos RN) Frequency (min): 2-3 (Sherry Carlos, RN) Quality: Mild/Moderate (Sherry Carlos RN) Duration (sec): 60-70 (Sherry Carlos RN) Resting Tone (Palpate): Relaxed (Sherry Carlos, RN) Monitor Mode: External US (Sherry Carlos, RN) FHR Baseline Rate : 140 (Sherry Carlos RN) Variability: Moderate 6-25 bpm (Sherrykendra Carlos, RN) Accelerations: 10X10 (Sherry Carlos, RN) Decelerations: Early (Sherry Carlos, RN) Pitocin (milliunit): Pitocin Remains (milliunits) @ 12 (Sherry Carlos RN) Datetime: 12/04/2016 10:02 NBP Sys/Sherry/Mean (mmHg): 106 (QS system process) : 61 (QS system process) : 77 (QS system process) Pulse: 90 (QS system process) Respirations: 16 (Sherry Carlos RN) LaborFlag: Antepartum (QS system process) Datetime: 12/04/2016 10:00 Monitor Mode: External; Palpation (Sherry Carlos RN) Frequency (min): 2-3 (Sherry Carlos RN) Quality: Mild/Moderate (Sherry Carlos RN) Duration (sec): 60-70 (Sherry Carlos, RN) Resting Tone (Palpate): Relaxed (Sherry Carlos RN) Monitor Mode: External US (Sherry Carlos RN) FHR Baseline Rate : 145 (Sherry Carlos RN) Variability: Moderate 6-25 bpm (Sherrykendra Carlos, RN) Accelerations: 15X15 (Sherrykendra Carlos, RN) Decelerations: Early (Sherry Carlos, RN) Pitocin (milliunit): Pitocin Remains (milliunits) @ 12 (Sherry Carlos RN) Datetime: 12/04/2016 09:48 Patient Position/Activity: Right Lateral (Sherry Carlos RN) Datetime: 12/04/2016 09:47 NBP Sys/Sherry/Mean (mmHg): 98 (QS system process) : 68 (QS system process) : 77 (QS system process) Pulse: 108 (QS system process) Respirations: 16 (Sherry Carlos RN) LaborFlag: Antepartum (QS system process) Datetime: 12/04/2016 09:45 Monitor Mode: External; Palpation (Sherry Carlos RN) Frequency (min): 2-3 (Sherry Carlos RN) Quality: Mild/Moderate (Sherry Carlos RN) Duration (sec): 60-70 (Sherry Carlos RN) Resting Tone (Palpate): Relaxed (Sherry Carlos RN) Monitor Mode: External US (Sherry Carlos RN) FHR Baseline Rate : 140 (Sherry Carlos RN) Variability: Moderate 6-25 bpm (Sherry Carlos RN) Accelerations: 15X15 (Sherry Carlos RN) Decelerations: None (Sherry Carlos RN) Pitocin (milliunit): Pitocin Remains (milliunits) @ 12 (Sherry Carlos RN) Datetime: 12/04/2016 09:31 NBP Sys/Sherry/Mean (mmHg): 109 (QS system process) : 56 (QS system process) : 76 (QS system process) Pulse: 75 (QS system process) Respirations: 18 (Sherry Carlos RN) LaborFlag: Antepartum (QS system process) Datetime: 12/04/2016 09:30 Monitor Mode: External; Palpation (Sherry Carlos RN) Frequency (min): 2-3 (Sherry Carlos RN) Quality: Mild/Moderate (Sherry Carlos RN) Duration (sec): 60-70 (Sherry Terrance, RN) Resting Tone (Palpate): Relaxed (Sherrykendra Carlos, RN) Monitor Mode: External US (Sherry Carlos, RN) FHR Baseline Rate : 135 (Sherrykendra Carlos, RN) Variability: Moderate 6-25 bpm (Sherry Terrance, RN) Accelerations: 15X15 (Sherry Terrance, RN) Decelerations: None (Sherrykendra Carlos, RN) Pitocin (milliunit): Pitocin Increased to (milliunits) @ 12 (Sherry Carlos, RN) Datetime: 12/04/2016 09:17 NBP Sys/Sherry/Mean (mmHg): 117 (QS system process) : 58 (QS system process) : 80 (QS system process) Pulse: 62 (QS system process) Respirations: 14 (Sherry Carlos RN) LaborFlag: Antepartum (QS system process) Datetime: 12/04/2016 09:16 Communication Comments: Dr Wellington on phone, plan of care discussed, FHR, UC pattern, SVE, epidural. No new orders received. Will continue to monitor. (Sherry Carlos, RN) Datetime: 12/04/2016 09:15 Monitor Mode: External; Palpation (Sherry Carlos RN) Frequency (min): 2-4 (Sherry Carlos RN) Quality: Mild/Moderate (Sherry Carlos, RN) Duration (sec): 60-70 (Sherry Carlos, RN) Resting Tone (Palpate): Relaxed (Sherry Carlos, RN) Monitor Mode: External US (Sherry Carlos, RN) FHR Baseline Rate : 140 (Sherry Carlos, RN) Variability: Moderate 6-25 bpm (Sherry Terrance, RN) Accelerations: 15X15 (Sherry Terrance, RN) Decelerations: Variable (Sherry Carlos, RN) Pitocin (milliunit): Pitocin Remains (milliunits) @ 10 (Sherrykendra Carlos, RN) Datetime: 12/04/2016 09:02 NBP Sys/Sherry/Mean (mmHg): 118 (QS system process) : 57 (QS system process) : 80 (QS system process) Pulse: 74 (QS system process) Respirations: 16 (Sherry Carlos RN) LaborFlag: Antepartum (QS system process) Datetime: 12/04/2016 09:00 Pitocin (milliunit): Pitocin Increased to (milliunits) @ 10 (Sherry Carlos RN) Instructional Method: Verbal; Patient Instructed; Verbalized Understanding (Sherry Carlos RN) Plan of Care: Plan of Care Discussed; Vaginal Delivery; Labor (Sherry Carlos RN) Labor/Induction: Labor Stages; Augmentation (Sherry Carlos RN) Pain Management: Comfort Measures (Sherry Carlos RN) Medications: Pitocin (Sherry Carlos RN) PTL/PROM: Hydration; Signs/Symptoms of Infection; Expected Outcomes (Sherry Carlos RN) Teaching Comments: PROM (Sherry Carlos RN) Datetime: 12/04/2016 08:58 NBP Sys/Sherry/Mean (mmHg): 116 (QS system process) : 56 (QS system process) : 80 (QS system process) Pulse: 70 (QS system process) Respirations: 18 (Sherry Carlos RN) LaborFlag: Antepartum (QS system process) Datetime: 12/04/2016 08:56 Pain Scale: 0 (Sherry Carlos RN) Pain Presence: None/Denies (Sherry Carlos RN) Pain Type: N/A (Sherry Carlos RN) Pain Assessment Comments: Comfortable with contractions (Sherry Carlos RN) Dilatation (cm): 3.0 (Sherry Carlos RN) Effacement (%): 60 (Sherry Carlos RN) Station: -3 (Sherry Carlos RN) Exam by: Camryn Carlos RNC (Sherry Carlos, RN) Vaginal Bleeding: None (Sherry Carlos RN) Cervix, Consistency: Soft (Sherry Carlos RN) Cervix, Position: Anterior (Sherry Carlos, RN) I/O Interventions: Waters Cath Inserted (Sherry Carlos RN) Patient Care Comments: 14fr waters cath insterted under sterile technique w/ clear yellow urine returned. Secured to left leg, set to gravity drainage. (Sherry Carlos RN) Anesthesia Level Check: T10- Umbilicus (Sherry Carlos RN) LaborFlag: Antepartum (QS system process) Datetime: 12/04/2016 08:52 NBP Sys/Sherry/Mean (mmHg): 127 (QS system process) : 58 (QS system process) : 84 (QS system process) Pulse: 71 (QS system process) Respirations: 18 (Sherry Carlos RN) LaborFlag: Antepartum (QS system process) Datetime: 12/04/2016 08:46 NBP Sys/Sherry/Mean (mmHg): 123 (QS system process) : 63 (QS system process) : 86 (QS system process) Pulse: 65 (QS system process) Respirations: 16 (Sherry Carlos RN) LaborFlag: Antepartum (QS system process) Datetime: 12/04/2016 08:41 NBP Sys/Sherry/Mean (mmHg): 114 (QS system process) : 56 (QS system process) : 77 (QS system process) Pulse: 61 (QS system process) Respirations: 18 (Sherry Terrance, RN) LaborFlag: Antepartum (QS system process) Datetime: 12/04/2016 08:40 NBP Sys/Sherry/Mean (mmHg): 116 (QS system process) : 58 (QS system process) : 79 (QS system process) Pulse: 64 (QS system process) Respirations: 18 (Sherry Carlos RN) Temperature (F): 98.0 (Sherry Carlos RN) Temperature (C): 36.7 (QS system process) Temperature Route: Oral (Sherry Carlos RN) LaborFlag: Antepartum (QS system process) Datetime: 12/04/2016 08:39 NBP Sys/Sherry/Mean (mmHg): 116 (QS system process) : 61 (QS system process) : 82 (QS system process) Pulse: 65 (QS system process) Respirations: 16 (Sherrykendra Carlos, RN) LaborFlag: Antepartum (QS system process) Datetime: 12/04/2016 08:37 NBP Sys/Sherry/Mean (mmHg): 111 (QS system process) : 71 (QS system process) : 83 (QS system process) Pulse: 56 (QS system process) Respirations: 18 (Sherry Carlos RN) LaborFlag: Antepartum (QS system process) Datetime: 12/04/2016 08:36 NBP Sys/Sherry/Mean (mmHg): 116 (QS system process) : 62 (QS system process) : 83 (QS system process) Pulse: 58 (QS system process) LaborFlag: Antepartum (QS system process) Datetime: 12/04/2016 08:35 NBP Sys/Sherry/Mean (mmHg): 118 (QS system process) NBP Sys/Sherry/Mean (mmHg): 111 (QS system process) : 64 (QS system process) : 55 (QS system process) : 85 (QS system process) : 77 (QS system process) Pulse: 50 (QS system process) Pulse: 57 (QS system process) Pulse: 62 (QS system process) SpO2 (%): 99 (QS system process) Medication Comments: Ephedrine 5mg IV (Sherry Carlos RN) LaborFlag: Antepartum (QS system process) Datetime: 12/04/2016 08:33 NBP Sys/Sherry/Mean (mmHg): 86 (QS system process) : 43 (QS system process) : 61 (QS system process) Pulse: 102 (QS system process) Respirations: 18 (Sherry Carlos RN) LaborFlag: Antepartum (QS system process) Datetime: 12/04/2016 08:32 NBP Sys/Sherry/Mean (mmHg): 104 (QS system process) : 60 (QS system process) : 77 (QS system process) Pulse: 88 (QS system process) LaborFlag: Antepartum (QS system process) Datetime: 12/04/2016 08:30 Pulse: 85 (QS system process) Pulse: 84 (QS system process) SpO2 (%): 90 (QS system process) Monitor Mode: External; Palpation (Sherry Carlos RN) Frequency (min): 2-4 (Sherry Carlos RN) Quality: Mild/Moderate (Sherry Carlos RN) Duration (sec): 50-80 (Sheryr Carlos RN) Resting Tone (Palpate): Relaxed (Sherry Carlos RN) Monitor Mode: External US (Sherry Carlos RN) FHR Baseline Rate : 135 (Sherry Carlos RN) Variability: Moderate 6-25 bpm (Sherry Carlos RN) Accelerations: 15X15 (Sherry Carlos RN) Decelerations: None (Sherry Carlos RN) Pitocin (milliunit): Pitocin Remains (milliunits) @ 8 (Sherry Carlos RN) Patient Position/Activity: Left Tilt; Supine (Sherry Carlos RN) LaborFlag: Antepartum (QS system process) Datetime: 12/04/2016 08:28 NBP Sys/Sherry/Mean (mmHg): 128 (QS system process) : 74 (QS system process) : 95 (QS system process) Pulse: 66 (QS system process) LaborFlag: Antepartum (QS system process) Datetime: 12/04/2016 08:27 Epidural Procedure: Loading Dose (Sherry Carlos RN) Datetime: 12/04/2016 08:25 NBP Sys/Sherry/Mean (mmHg): 142 (QS system process) : 77 (QS system process) : 102 (QS system process) Pulse: 75 (QS system process) Pulse: 78 (QS system process) SpO2 (%): 100 (QS system process) Epidural Procedure: Cath Placed; Test Dose (Sherry Carlos RN) LaborFlag: Antepartum (QS system process) Datetime: 12/04/2016 08:20 Pulse: 79 (QS system process) SpO2 (%): 100 (QS system process) LaborFlag: Antepartum (QS system process) Datetime: 12/04/2016 08:19 Procedure Type: Epidural (Sherry Carlos RN) Procedure Verify: Correct Patient Identity; Correct Side and Site are Marked; Accurate Procedure Consent Form; Agreement on Procedure to be Done; Correct Patient Position; Relevant Images and Results are Properly Labeled and Displayed; Addressed Need to Administer Antibiotics or Fluids for Irrigation; Safety Precautions Based on Patient History or Medication Use (Sherry Carlos RN) Anesthesia Plans: Epidural (Sherry Carlos RN) Epidural Positioning: Sitting (Sherry Carlos RN) Anesthesia Comments: Dr East at bedside (Sherry Carlos RN) Datetime: 12/04/2016 08:15 Pulse: 76 (QS system process) SpO2 (%): 100 (QS system process) Monitor Mode: External; Palpation (Sherrykendra Carlos, RN) Frequency (min): 2-3 (Sherrykendra Carlos, RN) Quality: Mild (Sherry Terrance, RN) Duration (sec): 50-70 (Sherry Terrance, RN) Resting Tone (Palpate): Relaxed (Sherrykendra Carlos, RN) Monitor Mode: External US (Sherrykendra Carlos, RN) FHR Baseline Rate : 140 (Sherry Terrance, RN) Variability: Moderate 6-25 bpm (Sherry Terrance, RN) Accelerations: 15X15 (Sherry Terrance, RN) Decelerations: None (Sherry Terrance, RN) Pitocin (milliunit): Pitocin Remains (milliunits) @ 8 (Sherry Terrance, RN) LaborFlag: Antepartum (QS system process) Datetime: 12/04/2016 08:12 Anesthesia Plans: Epidural (Sherry Terrance, RN) Epidural Positioning: Sitting (Sherry Terrance, RN) Datetime: 12/04/2016 08:11 NBP Sys/Sherry/Mean (mmHg): 123 (QS system process) : 72 (QS system process) : 92 (QS system process) Pulse: 66 (QS system process) LaborFlag: Antepartum (QS system process) Datetime: 12/04/2016 08:05 Procedure Type: Epidural (Sherry Carlos RN) Procedure Verify: Correct Patient Identity; Correct Side and Site are Marked; Accurate Procedure Consent Form; Agreement on Procedure to be Done; Relevant Images and Results are Properly Labeled and Displayed; Addressed Need to Administer Antibiotics or Fluids for Irrigation; Safety Precautions Based on Patient History or Medication Use (Sherry Carlos RN) Anesthesia Plans: Epidural (Sherry Carlos RN) Anesthesia Comments: Dr East notified of epidural request (Sherry Carlos RN) Datetime: 12/04/2016 08:00 Monitor Mode: External; Palpation (Sherry Carlos RN) Frequency (min): 2-4 (Sherry Carlos RN) Quality: Mild (Sherry Terrance, RN) Duration (sec): 60-80 (Sherrykendra Carlos, RN) Resting Tone (Palpate): Relaxed (Sherrykendra Carlos, RN) Monitor Mode: External US (Sherry Carlos, RN) FHR Baseline Rate : 140 (Sherrykendra Carlos, RN) Variability: Moderate 6-25 bpm (Sherry Terrance, RN) Accelerations: 15X15 (Sherry Terrance, RN) Decelerations: None (Sherry Terrance, RN) Pitocin (milliunit): Pitocin Remains (milliunits) @ 8 (Sherry Terrance, RN) Datetime: 12/04/2016 07:52 IV/Blood Work: New IV Bag Hung; IV Bag Number @ 2 (Sherry Terrance, RN) Datetime: 12/04/2016 07:50 Pitocin (milliunit): Pitocin Increased to (milliunits) @ 8 (Sherry Terrance, RN) Datetime: 12/04/2016 07:45 Monitor Mode: External; Palpation (Sherry Terrance, RN) Frequency (min): 2-4 (Sherry Terrance, RN) Quality: Mild (Sherry Terrance, RN) Duration (sec): 60-70 (Sherry Terrance, RN) Resting Tone (Palpate): Relaxed (Sherrykendra Carlos, RN) Monitor Mode: External US (Sherry Terrance, RN) FHR Baseline Rate : 140 (Sherry Terrance, RN) Variability: Moderate 6-25 bpm (Sherry Terrance, RN) Accelerations: 15X15 (Sherry Terrance, RN) Decelerations: None (Sherry Terrance, RN) Pitocin (milliunit): Pitocin Remains (milliunits) @ 6 (Sherry Terrance, RN) Datetime: 12/04/2016 07:39 NBP Sys/Sherry/Mean (mmHg): 112 (QS system process) : 60 (QS system process) : 80 (QS system process) Pulse: 66 (QS system process) Respirations: 16 (Sherry Terrance, RN) LaborFlag: Antepartum (QS system process) Datetime: 12/04/2016 07:30 Monitor Mode: External; Palpation (Sherry Carlos, RN) Frequency (min): 2-4 (Sherry Carlos, RN) Quality: Mild (Sherrykendra Carlos, RN) Duration (sec): 60-70 (Sherry Carlos, RN) Resting Tone (Palpate): Relaxed (Sherry Carlos, RN) Monitor Mode: External US (Sherry Carlos, RN) FHR Baseline Rate : 145 (Sherrykendra Carlos, RN) Variability: Moderate 6-25 bpm (Sherrykendra Carlos, RN) Accelerations: 10X10 (Sherrykendra Carlos, RN) Decelerations: None (Sherrykendra Carlos, RN) Pitocin (milliunit): Pitocin Remains (milliunits) @ 6 (Sherry Carlos, RN) Datetime: 12/04/2016 07:26 NBP Sys/Sherry/Mean (mmHg): 120 (QS system process) : 63 (QS system process) : 84 (QS system process) Pulse: 67 (QS system process) Respirations: 16 (Sherrykendra Carlos, RN) LaborFlag: Antepartum (QS system process) Datetime: 12/04/2016 07:20 Pitocin (milliunit): Pitocin Increased to (milliunits) @ 6 (Sherry Terrance, RN) Datetime: 12/04/2016 07:19 I/O Interventions: Up to BR (Sherry Terrance, RN) Datetime: 12/04/2016 07:15 Monitor Mode: External; Palpation (Sherry Carlos RN) Frequency (min): 3-4 (Sherry Carlos RN) Quality: Mild (Sherry Terrance, RN) Duration (sec): 60-70 (Sherry Carlos RN) Resting Tone (Palpate): Relaxed (Sherry Carlos RN) Monitor Mode: External US (Sherry Carlos RN) FHR Baseline Rate : 140 (Sherry Carlos RN) Variability: Moderate 6-25 bpm (Sherry Carlos RN) Accelerations: 15X15 (Sherry Carlos RN) Decelerations: None (Sherry Carlos RN) Pain Scale: 3 (Sherry Carlos RN) Pain Presence: Intermittent (Sherry Carlos RN) Pain Type: Contraction (Sherry Carlos RN) Pain Location: Abdomen; Perineum (Sherry Carlos, RN) Pain Goal: 2 (Sherry Carlos RN) Pain Relief Measures: Comfort Measures (Sherry Carlos RN) Pain Coping: Talking Through Contractions; Breathing Through Contractions; Requesting Pain Medication or Epidural (Sherry Carlos RN) Pain Assessment Comments: Epidural requested (Sherry Carlos RN) Pitocin (milliunit): Pitocin Remains (milliunits) @ 4 (Sherry Carlos RN) IV/Blood Work: IV Bolus Started (Sherry Carlos RN) Comfort Measures: Breathing/Relaxation (Sherry Carlos, RN) Patient Care Comments: LR IVF bolus started for Epidural (Sherry Carlos, RN) Procedure Type: Epidural (Sherry Carlos RN) Procedure Verify: Correct Patient Identity; Correct Side and Site are Marked; Accurate Procedure Consent Form; Agreement on Procedure to be Done; Relevant Images and Results are Properly Labeled and Displayed; Addressed Need to Administer Antibiotics or Fluids for Irrigation; Safety Precautions Based on Patient History or Medication Use (Sherry Carlos, NINFA) Anesthesia Plans: Epidural (Sherry Carlos RN) LaborFlag: Antepartum (QS system process) Datetime: 12/04/2016 07:10 NBP Sys/Sherry/Mean (mmHg): 128 (QS system process) : 73 (QS system process) : 93 (QS system process) Pulse: 67 (QS system process) Additional Nursing Comments: reporrt to Camryn Carlos RN and care relinquished (Chelsey Gardner RN) LaborFlag: Antepartum (QS system process) Datetime: 12/04/2016 07:00 Monitor Mode: External; Palpation (Chelsey Gardner RN) Frequency (min): 4 (Chelsey Gardner RN) Quality: Mild/Moderate (Chelsey Gardner RN) Duration (sec): 60-80 (Chelsey Gardner RN) Pattern: Normal: <= 5 Contractions in 10 Minutes (Chelsey Gardner RN) Resting Tone (Palpate): Relaxed (Chelsey Gardner RN) Monitor Mode: External US (Chelsey Gardner RN) FHR Baseline Rate : 135 (Chelsey Gardner RN) FHR Baseline Changes: No Baseline Change (Chelsey Gardner RN) Variability: Moderate 6-25 bpm (Chelsey Gardner RN) Accelerations: 15X15 (Chelsey Gardner RN) Decelerations: None (Chelsey Gardner RN)
--- NOTE | 2016-12-05 06:01 | L&D General Admission ---
General Admit Datetime Report Generated by CPN: 12/05/2016 06:00 INFORMATION Patient Age: 36 (11/16/2016 09:01:QS system process) EDC: 12/04/2016 00:00 (11/22/2016 17:22:Gwendolyn Domingo RNBre) : 7 (11/22/2016 17:22:Tri Zeng RN) Para: 6 (11/22/2016 17:22:Tri Zeng RN) Baby, Number in Womb: 1 (11/22/2016 17:22:Phyllis Gonzalez RN) CARE Primary Media Services Director: [employer] (11/22/2016 17:22:Tri Zeng RN) Month of 1st Visit: 20 weeks (11/22/2016 17:22:Tri Zeng RN) Adequate Care: No (11/22/2016 17:22:Tri Zeng RN) Height (in): 64 (12/04/2016 13:53:QS system process) ALLERGIES Medication Allergy: No (11/22/2016 17:22:Chelsey Gardner RN) Medication Allergies: No Known Allergies (12/04/2016) (12/04/2016 11:59:QS system process) COMMUNICATION Primary Language: Tuvaluan (11/22/2016 17:22:Tri Zeng RN) Medical Tx Preferred Language: Tuvaluan (11/22/2016 17:22:Tri Zeng RN) DEMOGRAPHICS Address: [address] [place] [id number] (11/16/2016 09:01:QS system process) Zipcode: [address] (11/16/2016 09:01:QS system process) Home (11/16/2016 09:01:QS system process) SSN: [id number] (11/16/2016 09:01:QS system process) Next of Kin Name: GOYO [employer]UU (11/16/2016 09:01:QS system process) Next of Kin (11/16/2016 09:01:QS system process) Next of Kin Relationship: MO (11/16/2016 09:01:QS system process) Date of : 1980 (11/16/2016 09:01:QS system process) Marital Status: (11/16/2016 09:01:QS system process) Sex: Female (11/16/2016 09:01:QS system process) Race: (11/16/2016 09:01:QS system process) Ethnicity: Non- or (11/16/2016 09:01:QS system process) Adventist: Church (11/22/2016 16:13:QS system process) DRUG AND ALCOHOL USE Alcohol: No (11/22/2016 17:22:Chelsey Gardner RN) Cigarettes: Never Smoker. [id number] (11/22/2016 17:22:Chelsey Gardner RN) Marijuana: No (11/22/2016 17:22:Chelsey Gardner RN) Cocaine: No (11/22/2016 17:22:Chelsey Gardner RN) Other Illicit Drugs: No (11/22/2016 17:22:Chelsey Gardner RN) VACCINE HISTORY Influenza Vaccine: Yes (11/22/2016 17:22:Chelsey Gardner RN) Tdap Vaccine: No (11/22/2016 17:22:Chelsey Gardner RN) Hepatitis B Vaccine: Yes (11/22/2016 17:22:Chelsey Gadrner RN) Transmission Design Engineer: [facility] (11/22/2016 17:22:Chelsey Gardner RN) Feeding Preference: Breast (11/22/2016 17:22:Chelsey Gardner RN) Benefit of Breast Feed Discussed: Yes (11/22/2016 17:22:Chelsey Gardner RN) Circumcision: N/A (11/22/2016 17:22:Chelsey Gardner RN) Classes Attended: No (11/22/2016 17:22:Chelsey Gardner RN) Tubal Ligation: No (11/22/2016 17:22:Chelsey Gardner RN) Tubal Authorization Signed: N/A (11/22/2016 17:22:Chelsey Gardner RN) Consent: N/A (11/22/2016 17:22:Chelsey Gardner RN) Consent Signed: N/A (11/22/2016 17:22:Chelsey Gardner RN) Pain Management Plans: Natural (11/22/2016 17:22:Chelsey Gardner RN) Plans for Labor and Delivery: None (11/22/2016 17:22:Chelsey Gardner RN) Support Person: Remedios (11/22/2016 17:22:Chelsey Gardner RN) Support Person Relationship: Other (11/22/2016 17:22:Chelsey Gardner RN) Cultural/Spritual Practice: N/A (11/22/2016 17:22:Chelsey Gardner RN) Spir/Cult Dietary Needs: N/A (11/22/2016 17:22:Chelsey Gardner RN) LIVING SITUATION/DISCHARGE PLAN Living Arrangements: House (11/22/2016 17:22:Chelsey Gardner RN) Adequate Access to:: Electric; Heat; Refrigeration; Plumbing/Running water; Phone; Transportation (11/22/2016 17:22:Chelsey Gardner RN) WIC Program: Yes (11/22/2016 17:22:Chelsey Gardner RN) Discharge [employer] Truck Driver Person: Bartolome Cisneros (11/22/2016 17:22:Chelsey Gardner RN) Person to Help after Discharge: Bartolome Cisneros (11/22/2016 17:22:Chelsey Gardner RN) Currently Using Commun Resources: No (11/22/2016 17:22:Chelsey Gardner RN) Outside Agency/Lehr Cutter: Yes (11/22/2016 17:22:Chelsey Gardner RN) Specify Agency/ Lehr Cutter: WIC/Medicaid (11/22/2016 17:22:Chelsey Gardner RN) Car Seat for Discharge: Yes (11/22/2016 17:22:Chelsey Gardner RN) Adoption Requested: No (11/22/2016 17:22:Chelsey Gardner RN) Pt Contact w/infant Post : N/A (11/22/2016 17:22:Chelsey Gardner RN) LABS Blood Type: O Positive (11/22/2016 17:22:Leesa Traylor RN) Antibody Screen: negative (11/22/2016 17:22:Phyllis Gonzalez RN) Rho(G) this : Not Applicable (11/22/2016 17:22:Phyllis Baidy, RN) Hemoglobin: 13.0 (12/04/2016 01:38:QS system process) Hematocrit: 38.4 (12/04/2016 01:38:QS system process) MCV: 97 (12/04/2016 01:38:QS system process) Group Beta Strep: Negative (11/22/2016 17:22:Leesa Traylor RN) Gonorrhea: Negative (11/22/2016 17:22:Leesa Traylor RN) Chlamydia: Negative (11/22/2016 17:22:Leesa Traylor RN) RPR/VDRL: Nonreactive (11/22/2016 17:22:Lashay Ramirez RN) Hepatitis B: Negative (11/22/2016 17:22:Lashay Ramirez RN) Rubella: Immune (11/22/2016 17:22:Lashay Ramirez RN) OB/PREVIOUS HISTORY Previous Procedures: Ultrasound; NST (11/22/2016 17:22:Chelsey Gardner RN) Current Procedures: Ultrasound; NST (11/22/2016 17:22:Chelsey Gardner RN) History of Previous : No (11/22/2016 17:22:Chelsey Gardner RN) History of Gestational Diabetes: No (11/22/2016 17:22:Chelsey Gardner RN) History of PIH: No (11/22/2016 17:22:Chelsey Gardner RN) History of Incompetent Cervix: No (11/22/2016 17:22:Chelsey Gardner RN) History of Placenta Previa/Abrup: No (11/22/2016 17:22:Chelsey Gardner RN) History of Macrosomia: No (11/22/2016 17:22:Chelsey Gardner RN) History of IUGR: No (11/22/2016 17:22:Chelsey Gardner RN) History of Hemorrhage: No (11/22/2016 17:22:Chelsey Gardner RN) History of Loss/Stillborn: No (11/22/2016 17:22:Chelsey Gardner RN) History of : No (11/22/2016 17:22:Chelsey Gardner RN) History of D (Rh) Sensitization: No (11/22/2016 17:22:Chelsey Gardner RN) History Recurrent Loss/Stillborn: No (11/22/2016 17:22:Chelsey Gardner RN) History Depression/PP Depression: No (11/22/2016 17:22:Chelsey Gardner RN) History of Uterine Anomaly/SERJIO: No (11/22/2016 17:22:Chelsey Gardner RN) History of Infertility: No (11/22/2016 17:22:Chelsey Gardner RN) History of ART Treatment: No (11/22/2016 17:22:Chelsey Gardner RN) History of SERJIO: No (11/22/2016 17:22:Chelsey Gardner RN) Comments Obstetrical History: G1: 02/28/2002 babygirl - retained placenta G2: 03/16/2004 babygirl - no complications G3: 03/29/2006 babyboy - no complications G4: 08/21/2008 babyboy - meconium G5: 02/26/2010 babygirl - no complications G6: 08/18/2011 babyboy - no complications G7: current, late and insufficient pnc, advanced maternal age (11/22/2016 17:22:Tri Zeng RN) MEDICAL HISTORY Med Hx Diabetes: No (11/22/2016 17:22:Chelsey Gardner RN) Med Hx Hypertension: No (11/22/2016 17:22:Chelsey Gardner RN) Med Hx Heart Disease: No (11/22/2016 17:22:Chelsey Gardner RN) Med Hx Autoimmune Disorder: No (11/22/2016 17:22:Chelsey Gardner RN) Med Hx Kidney Disease/UTI: No (11/22/2016 17:22:Chelsey Gardner RN) Med Hx Neurologic/Epilepsy: No (11/22/2016 17:22:Chelsey Gardner RN) Med Hx Psychiatric Disorders: No (11/22/2016 17:22:Chelsey Gardner RN) Med Hx Hepatitis/Liver Disease: No (11/22/2016 17:22:Chelsey Gardner RN) Med Hx Varicosities/Phlebitis: No (11/22/2016 17:22:Chelsey Gardner RN) Med Hx Thyroid Dysfunction: No (11/22/2016 17:22:Chelsey Gardner RN) Med Hx Trauma/Violence: No (11/22/2016 17:22:Chelsey Gardner RN) Med Hx Blood Transfusion: No (11/22/2016 17:22:Chelsey Gardner RN) Med Hx Pulmonary (Asthma,TB): No (11/22/2016 17:22:Chelsey Gardner RN) Med Hx Breast: No (11/22/2016 17:22:Chelsey Gardner RN) Med Hx CLOTHING SUPERVISOR Surgery: No (11/22/2016 17:22:Chelsey Gardner RN) Med Hx Hospitalization/Surgery: No (11/22/2016 17:22:Chelsey Gardner RN) Med Hx Anesthetic Complications: No (11/22/2016 17:22:Chelsey Gardner RN) Med Hx Abnormal Pap Smear: No (11/22/2016 17:22:Chelsey Gardner RN) Other Medical Diseases: No (11/22/2016 17:22:Chelsey Gardner RN) Med Hx Significant Family Hx: No (11/22/2016 17:22:Chelsey Gardner RN) INFECTIOUS HISTORY Inf Hx Gonorrhea: No (11/22/2016 17:22:Chelsey Gardner RN) Inf Hx Chlamydia: No (11/22/2016 17:22:Chelsey Gardner RN) Inf Hx Syphilis: No (11/22/2016 17:22:Chelsey Gardner RN) Inf Hx HIV/AIDS: No (11/22/2016 17:22:Chelsey Gardner RN) Inf Hx Human Papilloma Virus: No (11/22/2016 17:22:Chelsey Gardner RN) Inf Hx Pt/Partner Genital Herpes: No (11/22/2016 17:22:Chelsey Gardner RN) Inf Hx Tuberculosis/Exposure: No (11/22/2016 17:22:Chelsey Gardner RN) Inf Hx Hepatitis B,C: No (11/22/2016 17:22:Chelsey Gardner RN) Inf Hx Rash or Viral Illness: No (11/22/2016 17:22:Chelsey Gardner RN) GENETIC HISTORY Gen Hx Age >=35 at MITA: No (11/22/2016 17:22:Chelsey Gardner RN) Gen Hx Thalassemia: No (11/22/2016 17:22:Chelsey Gardner RN) Gen Hx Congenital Heart Defect: No (11/22/2016 17:22:Chelsey Gardner RN) Gen Hx Neural Tube Defect: No (11/22/2016 17:22:Chelsey Gardner RN) Gen Hx Down's Syndrome: No (11/22/2016 17:22:Chelsey Gardner RN) Gen Hx Mitesh-Sachs: No (11/22/2016 17:22:Chelsey Gardner RN) Gen Hx Jey: No (11/22/2016 17:22:Chelsey Gardner RN) Gen Hx Familial Dysautonomia: No (11/22/2016 17:22:Chelsey Gardner RN) Gen Hx Sickle Cell Disease/Trait: No (11/22/2016 17:22:Chelsey Gardner RN) Gen Hx Hemophilia/Blood Disorder: No (11/22/2016 17:22:Chelsey Gardner RN) Gen Hx Muscular Dystrophy: No (11/22/2016 17:22:Chelsey Gardner RN) Gen Hx Cystic Fibrosis: No (11/22/2016 17:22:Chelsey Gardner RN) Gen Hx Huntingtons Chorea: No (11/22/2016 17:22:Chelsey Gardner RN) Gen Hx Mental Retardation/Autism: No (11/22/2016 17:22:Chlesey Gardner RN) Gen Hx Tested for Fragile X: No (11/22/2016 17:22:Chelsey Gardner RN) Gen Hx Other Inher/Chromosomal: No (11/22/2016 17:22:Chelsey Gardner RN) Gen Hx Maternal Metabolic DO: No (11/22/2016 17:22:Chelsey Gardner RN) Gen Hx Pt Father or FOB Defect: No (11/22/2016 17:22:Chelsey Gardner RN) Gen Hx Other Genetic History: No (11/22/2016 17:22:Chelsey Gardner RN) Gen Hx Drugs/Meds since LMP: No (11/22/2016 17:22:Chelsey Gardner RN) 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
--- NOTE | 2016-12-05 06:01 | L&D Current Admission ---
Current Admit Datetime Report Generated by CPN: 12/05/2016 06:00 ADMISSION INFORMATION Current Admit Date/Time: 12/04/2016 01:41 (12/04/2016 01:41:Chelsey Gardner RN) Reason for Admission: Rupture of Membranes (12/04/2016 01:41:Chelsey Gardner RN) Chief Complaint: Suspected Rupture of Membranes (12/04/2016 01:44:Chelsey Gardner RN) Medications During : Vitamin (12/04/2016 01:41:Chelsey Gardner RN) EGA per Dates: 40.0 (12/04/2016 01:41:QS system process) Method of Arrival: Wheelchair (12/04/2016 01:41:Chelsey Gardner RN) Admitted From: Home (12/04/2016 01:41:Tri Zeng RN) Reason for Induction: Not Applicable (12/04/2016 01:41:Chelsey Gardner RN) Records Available: Yes (12/04/2016 01:41:Chelsey Gardner RN) General Admission Information: Reviewed (12/04/2016 01:41:Chelsey Gardner RN) BELONGINGS/ADVANCED DIRECTIVES Valuables/Personal Effects: Purse/Wallet; Cell Phone; Jewelry (12/04/2016 01:41:Chelsey Gardner RN) Disposition of Belongings: Kept with Patient (12/04/2016 01:41:Chelsey Gardner RN) Advance Direct for Healthcare: No, and Wants No Information (12/04/2016 01:41:Chelsey Gardner RN) Durable Power of Nuisance Wildlife Control Operator: Yes (12/04/2016 01:41:Chelsey Gardner RN) Living Will: Yes (12/04/2016 01:41:Chelsey Gardner RN) Organ Donor: Yes (12/04/2016 01:41:Chelsey Gardner RN) Pt Rights Information Given: Yes (12/04/2016 01:41:Chelsey Gardner RN) Pt Understands Pt Rights: Yes (12/04/2016 01:41:Chelsey Gardner RN) LEARNING ASSESSMENT Knowledge Level: Understands L_D Process; Understands Care Activities; Had Pre-Hospital Education; Understands Diagnosis (12/04/2016 01:41:Chelsey Gardner RN) Barriers to Learning: None (12/04/2016 01:41:Chelsey Gardner RN) Learning Readiness: Motivated (12/04/2016 01:41:Chelsey Gardner RN) Learns Best By: 1 to 1 Instruction (12/04/2016 01:41:Chelsey Gardner RN) Learning Needs: Labor and Delivery Process; Pain Management; Symptoms to Report; Treatment Plan; Medication; Diagnosis; Nutrition; Equipment; Care; Community Resources (12/04/2016 01:41:Chelsey Gardner RN) DOMESTIC VIOLANCE SCREENING Dom Viol Threatened/Hurt: No (12/04/2016 01:41:Chelsey Gardner RN) Hx of Abuse/Neglect past 2yrs: No (12/04/2016 01:41:Chelsey Gardner RN) Feel Unsafe Going Home: No (12/04/2016 01:41:Chelsey Gardner RN) Addt'l Observ Indicating Abuse: No (12/04/2016 01:41:Chelsey Gardner RN) Reason Unable to Complete Screen: N/A, Screen Completed (12/04/2016 01:41:Chelsey Gardner RN) Considered Personal Harm/Suicide: No (12/04/2016 01:41:Chelsey Gardner RN) NUTRITIONAL/FUNCTIONAL SCREENING Problem with Appetite >5 Days: No (12/04/2016 01:41:Chelsey Gardner RN) Chew/Swallow Difficulties: No (12/04/2016 01:41:Chelsey Gardner RN) Inappropriate Wt Gain/Loss: No (12/04/2016 01:41:Chelsey Gardner RN) Presence Skin Breakdown/Ulcer: No (12/04/2016 01:41:Chelsey Gardner RN) Special Diet: No (12/04/2016 01:41:Chelsey Gardner RN) Pt Requests Transmission Mechanic Visit: No (12/04/2016 01:41:Chelsey Gardner RN) Hx of Any of the Following?: N/A (12/04/2016 01:41:Chelsey Gardner RN) New Diagnosis of: N/A (12/04/2016 01:41:Chelsey Gardner RN) Requires Assist w/Ambulation: No (12/04/2016 01:41:Chelsey Gardner RN) Uses Assist Device to Ambulate: No (12/04/2016 01:41:Chelsey Gardner RN) Pt Requires Help w/ADL's: No (12/04/2016 01:41:Chelsey Gardner RN)
--- NOTE | 2016-12-05 06:16 | L&D Care Plan ---
LD CARE PLANS Datetime Report Generated by CPN: 12/05/2016 06:15 Datetime: 12/04/2016 01:27 Pain State: Risk For (Leesa Traylor RN) Related To: Labor and Delivery Process; Complication(s) of ; Post (Leesa Traylor RN) Interventions: Assess Pain Severity on Scale of 0 (None) to 5 (Severe); Assess Type, Location and Intensity of Pain Each Time Client Reports Discomfort and Notify Provider if Unusal Pain Develops; Encourage Proper Breathing and Relaxation Techniques; Offer Alternatives Such as Repositioning, Calm Environment, Massages, Diversional Activities, Ice Pack, Splinting, and Ambulation; Administer Analgesics as Ordered; Assist with Epidural Placement as Appropriate; Evaluate Therapeutic Effectiveness of Medication and Treatments (Leesa Traylor RN) Outcome: Patient will Report Absence or Relief of Pain Consistent with Established Pain Goal (Leesa Traylor RN) Status: Ongoing (Leesa Traylor RN) Outcome: Patient will have a Decrease in Signs and Symptoms of Discomfort (Leesa Traylor RN) Status: Ongoing (Leesa Traylor RN) Outcome: Pain will be Controlled During Procedures (Leesa Traylor RN) Status: Ongoing (Leesa Traylor RN) Anxiety State: Risk For (Leesa Traylor RN) Related To: Labor and Delivery Process; Situational Crisis; Medical Interventions; Significant Life Event (Leesa Traylor RN) Goal(s): Patient will have Decreased Anxiety and be able to Function at Acceptable Levels (Leesa Traylor RN) Interventions: Assess Verbal and Nonverbal Behavioral Indicators of Anxiety; Assist Patient to Identify and Verbalize Symptoms of Anxiety; Identify and Demonstrate Techniques to Control Anxiety; Assist Patient with Coping Mechanisms to Manage Anxiety; Provide Theraputic Touch for the Patient; Explain to Patient, Using a Calm Reassuring Approach and Nonmedical Terms, All Activities, Procedures, and Concerns; Instruct Patient and Family about Post Discharge Care, Limitations, Symptoms to Report and Resources Available (Leesa Traylor RN) Outcome: Patient will Identify, Verbalize and Demonstrate Techniques to Control Anxiety (Leesa Traylor RN) Status: Ongoing (Leesa Traylor RN) Outcome: Patient's Posture, Facial Expressions, Gestures and Activity Level will Reflect Decreased Anxiety (Leesa Traylor RN) Status: Ongoing (Leesa Traylor RN) Outcome: Patient will Verbalize a Sense of Control and/or Acceptance of the Situation (Leesa Traylor RN) Status: Ongoing (Leesa Traylor RN) Outcome: Patient will Identify and Utilize Support Person (Leesa Traylor RN) Status: Ongoing (Leesa Traylor RN) Knowledge Deficit State: Risk For (Leesa Traylor RN) Related To: Labor and Delivery Process; Surgical Procedures; Treatment and Procedures; Impending Alterations in Family Dynamics; Feeding and Infant Care; Community Resources and Available Support Mechanisms (Leesa Traylor RN) Goal(s): Patient will Accurately Verbalize Understanding of Plan of Care and Treatment; Patient and Family will Accurately Verbalize Understanding of the Disease Process (Leesa Traylor RN) Interventions: Assess Motivation and Willingness of Patient/Family to Learn; Assess Preferred Learning Mode: One to One Instruction, Reading, Videos, Group Discussion or Demonstration; Assess Barriers to Learning: Pain, Emotional State, Language Barrier, Cognitive Impairment, Visual or Hearing Deficits; Assess Patient and Family Knowledge of Disease Process, Medications and Treatment; Discuss Therapy and/or Treatment Options, Describe Rationale Behind Management, Therapy and Treatment Recommendations; Instruct Patient and Family on Signs and Symptoms to Report; Instruct Patient and Family on Medication Effects and Side Effects; Provide Appropriate and Timely Education Using Multiple Techniques; Provide Patient and Family with Support Group Information and Resources; Give Clear and Thorough Explanations and Demonstrations (Leesa Traylor RN) Outcome: Patient and Family will Verbalize Understanding of Condition, Treatment and Signs and Symptoms to Report (Leesa Traylor RN) Status: Ongoing (Leesa Traylor RN) Outcome: Patient will Identify Perceived Learning Needs and Express Motivation to Learn (Leesa Traylor RN) Outcome: Patient will Verbalize Understanding of Desired Content, and/or Performs Desired Skill Prior to Discharge (Leesa Traylor RN) Infection State: Risk For (Leesa Traylor RN) Related To: Premature/Prolonged Rupture of Membranes; Altered Tissue Integrity (Leesa Traylor RN) Goal(s): The Patient will be Free of Infection, Vital Signs Stable and Lab Work within Normal Parameters (Leesa Traylor RN) Interventions: Instruct and Reinforce Proper Handwashing, Hygiene, and Care Techniques to Patient and Family; Monitor Vital Signs; Monitor Patient for the Following Signs of Infection: Fever, Abdominal Tenderness, Unusual Discharge; Monitor Aminiotic Fluid, Urine and Lochia for Color and Odor; Observe Wounds, Incisions and Invasive Line Sites for Redness, Drainage and Edema; Assess IV Sites per Hospital Policy; Monitor Lab and Test Results and Notify Provider of Abnormal Findings; Assess Nutritional Status and Promote Good Nutrition (Leesa Traylor RN) Outcome: Patient will Remain Free of Infection (Leesa Traylor RN) Status: Ongoing (Leesa Traylor RN) Outcome: Infection will be Recognized Early to Allow for Prompt Treatment (Leesa Traylor RN) Status: Ongoing (Leesa Traylor RN) Outcome: Patient will have Vital Signs Within Expected Range (Leesa Traylor RN) Status: Ongoing (Leesa Traylor RN)
[2016-12-05] MEDS: IBUPROFEN 800 MG TABLET PO SCH ×2 (07:25→13:16)
[2016-12-05 07:35] LABS: HEMATOCRIT 36.6 % (36.0-47.0); HEMOGLOBIN 12.3 g/dL (12.0-15.5); HGB HCT DIFFERENCE 0.3; MEAN CORPUSCULAR HEMOGLOBIN 32.8 pg (27.0-33.4); MEAN CORPUSCULAR HGB CONC 33.5 g/dL (32.0-36.0); MEAN CORPUSCULAR VOLUME 98 fl (80-97); RED BLOOD COUNT 3.74 10^6/uL (3.72-5.28); RED CELL DISTRIBUTION WIDTH 13.9 % (11.5-14.0)
--- NOTE | 2016-12-05 08:22 | PDOC PROGRESS REPORT ---
Subjective-OB Subjective: Post Delivery Day: 36 year old. Denies any needs at this time Physical Exam (OB) Vital Signs: Temp Pulse Resp BP Pulse Ox 98.3 F 65 14 108/66 99 12/04/16 19:48 12/04/16 19:48 12/04/16 19:48 12/04/16 19:48 12/04/16 19:48 Intake & Output 12/04/16 12/05/16 12/06/16 06:59 06:59 06:59 Weight 69 kg - PIH/Pre-Eclampsia Clonus: Negative Headache: Absent Epigastric Pain: No Visual Changes: No - Lochia Lochia Amount: Scant < 10 ml Lochia Color: Rubra/Red - Abdomen Description: Soft, Round Hernia Present: No Bowel Sounds: Normoactive Flatus Presence: Present Stool: Yes Fundal Description: Firm, Midline Fundal Height: u/u - u/2 Objective-Diagnostic Laboratory: 12/05/16 07:20 12/05/16 07:20 WBC 7.0 RBC 3.74 Hgb 12.3 Hct 36.6 MCV 98 H MCH 32.8 MCHC 33.5 RDW 13.9 Plt Count 151
[2016-12-05 09:56] VITALS: BP 103/63
[2016-12-05] MEDS ORDERED: SENNOSIDES/DOCUSATE 8.6-50 MG 1 EACH TABLET PO SCH (10:00)
[2016-12-05] MEDS ORDERED: PRENATAL VITAMIN W-O CA NO5/FE FUMARATE/FA CAPSULE PO SCH (10:00)
[2016-12-05] MEDS: DOCUSATE SODIUM 100 MG CAPSULE PO SCH ×2 (10:38→18:36)
[2016-12-05] MEDS: FERROUS SULFATE 325 MG TABLET PO SCH ×2 (10:38→18:36)
--- NOTE | 2016-12-05 17:40 | PDOC DISCHARGE SUMMARY ---
Final Diagnosis Discharge Date: 12/05/16 - Final Diagnosis (1) Advanced maternal age (AMA) in Is this a current diagnosis for this admission?: Yes (2) Grand multipara Is this a current diagnosis for this admission?: Yes (3) Insufficient antepartum care Is this a current diagnosis for this admission?: Yes (4) Delivery normal Is this a current diagnosis for this admission?: Yes (5) Is this a current diagnosis for this admission?: Yes Discharge Data - Discharge Medication Home Medications: Vit #76/Iron,Carb/FA [Prenatabs Rx Tablet] 1 tab PO DAILY 11/22/16 Ibuprofen [Motrin 800 mg Tablet] 800 mg PO Q8 #30 tablet 12/05/16 Gestational Age: 40.0 wks Reason(s) for Admission: PROM Procedures: Ultrasound Intrapartum Procedure(s): Spontaneous Vaginal Delivery - Given Data Baby 1 Female at 1 minute: 8 at 5 minutes: 9 Weight: 3.77 kg Home with Mother: Yes Complications: No - Diagnosis Test Laboratory: Temp Pulse Resp BP Pulse Ox 98.2 F 64 16 103/63 99 12/05/16 08:22 12/05/16 08:22 12/05/16 08:22 12/05/16 08:22 12/05/16 08:22 12/04/16 12/04/16 12/05/16 01:22 01:38 07:20 RBC 3.94 3.74 Hgb 13.0 12.3 Hct 38.4 36.6 Urine Opiates Screen NEGATIVE - Discharge information/Instructions Discharge Activity: Activity As Tolerated, Balance Activity w/Rest, Pelvic Rest , Slowly Increase Activity, No tub bath Discharge Diet: Regular Disposition: HOME, SELF-CARE Follow [facility]: [facility] in: 4, Weeks
== END 2016-12-05 20:03 | disposition home or self-care (01) | DRG 775 ==
LOC: LC 01:10 → LR 01:19 → UNDOADMIN 01:29 → LR 01:29 → 2S 13:53
PROVIDERS: ADMIT Obstetrics & Gynecology; ATTEND Obstetrics & Gynecology
PROC: 10E0XZZ Delivery of Products of Conception, External Approach (ICD-10-PCS; principal; 2016-12-04)
PROC: 4A1HXCZ Monitoring of Products of Conception, Cardiac Rate, External Approach (ICD-10-PCS; 2016-12-04)
DX: O42.02 Full-term premature rupture of membranes, onset of labor within 24 hours of rupture (principal); Z37.0 Single live birth; Z3A.40 40 weeks gestation of pregnancy
CPT/HCPCS: 36415; 80307; 81005; 85025; 85027; 86592; 86850; 86900; 86901; 94760; J2370; J2590; J3010; J3490

== ENCOUNTER 2018-08-16 10:51 | Day surgery (SDC) | payer MEDICAID ==
[2018-08-13 12:17] LABS: APPEARANCE,URINE CLEAR; BILIRUBIN,URINE NEGATIVE (NEGATIVE); COLOR,URINE YELLOW; GLUCOSE, URINE NEGATIVE (NEGATIVE); KETONES,URINE NEGATIVE (NEGATIVE); LEUKOCYTE ESTERASE,URINE NEGATIVE (NEGATIVE); NITRITE,URINE NEGATIVE (NEGATIVE); PROTEIN,URINE NEGATIVE (NEGATIVE); URINE SPECIFIC GRAVITY 1.023; UROBILINOGEN,URINE NEGATIVE mg/dL (<2.0)
[2018-08-13 12:24] LABS: HEMATOCRIT 37.7 % (36.0-47.0); HEMOGLOBIN 12.8 g/dL (12.0-15.5); MEAN CORPUSCULAR HEMOGLOBIN 33.2 pg (27.0-33.4); MEAN CORPUSCULAR HGB CONC 33.9 g/dL (32.0-36.0); MEAN CORPUSCULAR VOLUME 98 fl (80-97); PLATELET COUNT 252 10^3/uL (150-450); RED BLOOD COUNT 3.85 10^6/uL (3.72-5.28); RED CELL DISTRIBUTION WIDTH 12.8 % (11.5-14.0); WHITE BLOOD COUNT 7.4 10^3/uL (4.0-10.5)
[~2018-08-16 10:51] MED LIST: LACTATED RINGERS 1000 ML IV PRN; LIDOCAINE 0.5% INJ-PF (5 MG/ML) 50 ML SDV SUBCUT PRN; SUCCINYLCHOLINE CHLORIDE INJ 200 MG/10 ML VIAL ONE
[2018-08-16] MEDS ORDERED: PROPOFOL INJ 200 MG/20 ML VIAL IV ONE (12:11)
[2018-08-16] MEDS ORDERED: MIDAZOLAM 2 MG/2 ML INJ ONE (12:11)
[2018-08-16] MEDS ORDERED: FENTANYL CITRATE INJ/PF 100 MCG/2 ML AMPUL ONE (12:11)
[2018-08-16] MEDS ORDERED: ONDANSETRON HCL INJ/PF 4 MG/2 ML SDV ONE (12:11)
[2018-08-16] MEDS ORDERED: DEXAMETHASONE SOD PHOSPHATE INJ 4 MG/1 ML VIAL ONE (12:11)
[2018-08-16] MEDS ORDERED: MORPHINE SULFATE 10 MG/ML INJ ONE (12:11)
[2018-08-16] MEDS ORDERED: PROMETHAZINE HCL INJ 25 MG/1 ML VIAL IV PRN ×2 (12:56)
[2018-08-16] MEDS ORDERED: FENTANYL CITRATE INJ/PF 100 MCG/2 ML AMPUL IV PRN ×3 (12:56)
[2018-08-16] MEDS ORDERED: OXYCODONE-ACETAMINOPHEN 5-325 MG TABLET PO PRN ×4 (12:56→13:19)
[2018-08-16] MEDS ORDERED: MEPERIDINE HCL/PF INJ 25 MG/1 ML DISP.SYRIN IV PRN (12:56)
[2018-08-16] MEDS ORDERED: MORPHINE SULFATE 10 MG/ML INJ IV PRN (12:56)
[2018-08-16] MEDS ORDERED: DIPHENHYDRAMINE HCL 50 MG/ML VIAL IV PRN (12:56)
[2018-08-16] MEDS ORDERED: RINGERS SOLUTION,LACTATED 1,000 ML IV PRN (13:18)
[2018-08-16] MEDS ORDERED: IBUPROFEN 800 MG TABLET PO PRN (13:18)
[2018-08-16] MEDS ORDERED: ACETAMINOPHEN 1,000 MG/100 ML RTUPB IV ONE (13:20)
[2018-08-16] MEDS ORDERED: KETOROLAC TROMETHAMINE INJ/PF 30 MG/1 ML SDV ONE (13:20)
[2018-08-16] MEDS: FENTANYL CITRATE INJ/PF 100 MCG/2 ML AMPUL ONE ×2 (13:28→13:40)
[2018-08-16] MEDS: MEPERIDINE HCL/PF INJ 25 MG/1 ML DISP.SYRIN ONE ×2 (13:30→13:35)
[2018-08-16] MEDS ORDERED: IBUPROFEN 800 MG TABLET ONE (14:32)
--- NOTE | 2018-08-16 14:36 | OPERATIVE REPORT E ---
Operative Report NAME: AMBER KING : 1980 AGE: 38Y DATE OF SURGERY: 08/16/2018 ROOM: PREOPERATIVE DIAGNOSIS: UNDESIRED FERTILITY. POSTOPERATIVE DIAGNOSIS: UNDESIRED FERTILITY. OPERATION: Laparoscopic tubal cauterization. SURGEON: EVARISTO CONKLIN M.D. ANESTHESIA: Ignacio Knox MD, with general. FINDINGS: Normal uterus, tubes and ovaries. COMPLICATIONS: None. ESTIMATED BLOOD LOSS: 5 mL SPECIMENS REMOVED: None. PROCEDURE: Patient was taken to the operating room, prepared and draped in normal sterile fashion in dorsolithotomy position. Under sterile conditions, an in-and-out cath was performed for approximately 25 mL of clear urine. The speculum was placed into the vagina. The anterior lip of the cervix was grasped with a single-toothed tenaculum and the cervix was then transected with the Hulka clamp. The tenaculum and speculum were then removed. Gloves were changed and attention was turned to the upper portion of the case, where an umbilical skin incision was made and a Veress needle was introduced through this incision. The abdomen was inflated with approximately 2 liters of CO2 gas. The Veress needle was removed and a 5-mm port was placed into this incision. The patient was placed in Trendelenburg, and under direction visualization, a 5-mm port was placed in the left lower quadrant. A Kleppinger was then introduced and the bowel was swept away. The left fallopian tube was grasped with a Kleppinger and coagulated approximately 3.5 cm. The right fallopian tube was then coagulated and occluded in a similar fashion. The Kleppinger was removed and the 5-mm port was removed under direct visualization, with good hemostasis. The camera was removed and the abdomen was deflated through the umbilical port, which was then also removed. The skin was closed at both incision sites using 4-0 Vicryl. Patient tolerated procedure well. Sponge, lap and needle counts were correct x2. Patient was taken to recovery in stable condition. DICTATING PHYSICIAN: EVARISTO CONKLIN M.D. [id number] PHY#: [id number] ID: [id number] JOB#: [id number] ACCT: [id number] cc:EVARISTO CONKLIN M.D. >
[2018-08-16 15:30] VITALS: BP 118/70
== END 2018-08-16 15:35 | disposition home or self-care (01) ==
LOC: OROUT 10:51
PROVIDERS: ATTEND Obstetrics & Gynecology
DX: Z30.2 Encounter for sterilization (principal); Z01.818 Encounter for other preprocedural examination
CPT/HCPCS: 36415; 85027; 81005; 81025; 58670; J2250; J3490; J1100; J3010; J2175; J1885; J2270; J0330; J2405; J2704; J0131; 851